=== PATIENT | male | born 1945 | race Caucasian/White ===

== ENCOUNTER 2019-02-15 12:55 | Emergency (ER) | payer OTHER ==
[~2019-02-15] VITALS: Ht 167.6 cm; Wt 104.3 kg
[~2019-02-15 12:55] MED LIST: ALBU90OI INH; ALLO300 PO; ASPI81CH PO; ATOR80 PO; Alphagan P5 ML BOTHEYES; CIME400 PO; GABA300 PO; GLIP10 PO; INS70/30I SC; INSU100I6; INSULANPEN SC; LISI5 PO; MIDO2.5 PO; MULVITMIND PO; NIAC500 PO; PIOG30 PO; PRED10 PO; RANI150 PO; SIMV80 PO; TAMS.4ER PO; TORSE20 PO; [UNRECOGNIZED DRUG - OTHER] BOTHEYES; [UNRECOGNIZED DRUG - OTHER] PO
[2019-02-15 13:41] LABS: BASOPHILS ABSOLUTE AUTO 0.04 K/mm3 (0.00-0.23); BASOPHILS PERCENT AUTO 1 % (0-2); EOSINOPHILS ABSOLUTE AUTO 0.25 K/mm3 (0.00-0.68); EOSINOPHILS PERCENT AUTO 3 % (0-6); Hematocrit 46.4 % (37.0-53.0); Hemoglobin 14.8 g/dL (13.5-17.5); IMMATURE GRAN PERCENT AUTO 1 % (0-1); LYMPHOCYTES ABSOLUTE AUTO 1.33 K/mm3 (0.84-5.20); LYMPHOCYTES PERCENT AUTO 15 % (21-46); MONOCYTES ABSOLUTE AUTO 0.92 K/mm3 (0.16-1.47); MONOCYTES PERCENT AUTO 11 % (4-13); Mean Corpuscular HGB 31.4 pg (26.0-34.0); Mean Corpuscular HGB Conc 31.9 g/dL (31.5-36.5); Mean Corpuscular Volume 99 fL (80-100); Mean Platelet Volume 10.7 fL (9.1-12.4); NEUTROPHILS ABSOLUTE AUTO 6.15 K/mm3 (1.96-9.15); NEUTROPHILS PERCENT AUTO 70 % (41-73); Platelet Count 198 K/mm3 (150-400); RDW Coefficient Variation 13.2 % (11.7-14.2); RDW Standard Deviation 48.8 fL (35.1-46.3); Red Blood Cell Count 4.71 M/mm3 (4.30-5.90); White Blood Cell Count 8.79 K/mm3 (4.00-11.30)
[2019-02-15 14:13] LABS: Anion Gap 8 mmol/L (6-16); Blood Urea Nitrogen 33 mg/dL (8-24); CO2, Blood 24 mmol/L (21-32); Calcium, Blood 8.5 mg/dL (8.5-10.1); Chloride, Blood 111 mmol/L (98-108); Glucose, Blood 56 mg/dL (70-99); Potassium, Blood 4.1 mmol/L (3.5-5.5); Sodium, Blood 143 mmol/L (136-145)
[2019-02-15 14:16] LABS: Alanine Aminotransfer (ALT/SGP 31 U/L (12-78); Alk Phos 74 U/L (50-136); Aspartate Aminotrans (AST/SGOT 20 U/L (12-37); Bilirubin, Total 0.3 mg/dL (0.1-1.0); Bun/Creatinine Ratio 17.6 (12.0-20.0); Creatinine, Blood 1.87 mg/dL (0.60-1.20); Globulin, Blood 2.9 g/dL (2.2-4.0); Glomerular Filtration Rate 38 (60-); Total Protein, Blood 5.9 g/dL (6.4-8.2); Troponin I <0.015 ng/mL (0.000-0.040)
== END 2019-02-15 15:29 | disposition home or self-care (01) ==
LOC: ER 12:55
PROVIDERS: Emergency Medicine
DX: S00.81XA Abrasion of other part of head, initial encounter (principal); I95.1 Orthostatic hypotension; E11.9 Type 2 diabetes mellitus without complications; M10.9 Gout, unspecified; E78.5 Hyperlipidemia, unspecified; Z87.891 Personal history of nicotine dependence; W18.30XA Fall on same level, unspecified, initial encounter
CPT/HCPCS: 80053; 82947; 83880; 84484; 85025; 93005; 93010; 99284-25

== ENCOUNTER 2019-11-04 13:28 | Emergency (ER) | payer OTHER ==
[~2019-11-04] VITALS: Ht 167.6 cm; Wt 104.3 kg
== END 2019-11-04 15:40 | disposition home or self-care (01) ==
LOC: ER 13:28
DX: S52.512A Displaced fracture of left radial styloid process, initial encounter for closed fracture (principal); E11.9 Type 2 diabetes mellitus without complications; M10.9 Gout, unspecified; E78.00 Pure hypercholesterolemia, unspecified; F17.220 Nicotine dependence, chewing tobacco, uncomplicated; W18.30XA Fall on same level, unspecified, initial encounter
CPT/HCPCS: 73110; 99284-25

== ENCOUNTER 2020-03-22 10:20 | Emergency (ER) | payer OTHER ==
[~2020-03-22] VITALS: Ht 167.6 cm; Wt 110.2 kg
== END 2020-03-22 12:05 | disposition home or self-care (01) ==
LOC: ER 10:20
DX: S43.401A Unspecified sprain of right shoulder joint, initial encounter (principal); S50.811A Abrasion of right forearm, initial encounter; E78.5 Hyperlipidemia, unspecified; E11.39 Type 2 diabetes mellitus with other diabetic ophthalmic complication; H42 Glaucoma in diseases classified elsewhere; Z79.4 Long term (current) use of insulin; Z88.5 Allergy status to narcotic agent; Z88.8 Allergy status to other drugs, medicaments and biological substances; Z79.82 Long term (current) use of aspirin; Z79.899 Other long term (current) drug therapy; Z87.891 Personal history of nicotine dependence; W18.30XA Fall on same level, unspecified, initial encounter
CPT/HCPCS: 73030; 99283-25

== ENCOUNTER 2022-03-04 13:18 | Emergency (ER) | payer OTHER ==
[~2022-03-04] VITALS: Ht 167.6 cm; Wt 104.3 kg
[2022-03-04 16:05] LABS: Albumin, Blood 2.7 g/dL (3.4-5.0); Bilirubin, Total 0.4 mg/dL (0.1-1.0); Calcium, Blood 8.8 mg/dL (8.5-10.1); Creatinine, Blood 1.1 mg/dL (0.60-1.20); Globulin, Blood 2.6 g/dL (2.2-4.0); Potassium, Blood 4.2 mmol/L (3.5-5.5); Total Protein, Blood 5.3 g/dL (6.4-8.2)
[2022-03-04 17:35] LABS: Calcium, Ionized (POC) 1.28 mmol/L (1.10-1.46); Chloride (POC) 108 mmol/L (98-108); Creatinine (POC) 1.2 mg/dL (0.8-1.3); Glucose (ISTAT POC) 95 mg/dL (70-99); Hemoglobin (POC) 16.3 g/dL (13.5-17.5); Potassium (POC) 4.1 mmol/L (3.5-5.5); Sodium (POC) 144 mmol/L (135-148); Total CO2 (POC) 27 mmol/L (21-32)
[2022-03-04 18:06] LABS: BASOPHILS ABSOLUTE AUTO 0.03 K/mm3 (0.00-0.23); BASOPHILS PERCENT AUTO 0 % (0-2); EOSINOPHILS ABSOLUTE AUTO 0.12 K/mm3 (0.00-0.68); EOSINOPHILS PERCENT AUTO 1 % (0-6); Hematocrit 45.8 % (37.0-53.0); Hemoglobin 14.9 g/dL (13.5-17.5); IMMATURE GRAN ABSOLUTE AUTO 0.05 K/mm3 (0.00-0.10); IMMATURE GRAN PERCENT AUTO 1 % (0-1); LYMPHOCYTES PERCENT AUTO 12 % (21-46); MONOCYTES ABSOLUTE AUTO 0.53 K/mm3 (0.16-1.47); MONOCYTES PERCENT AUTO 5 % (4-13); Mean Corpuscular HGB 31.2 pg (26.0-34.0); Mean Corpuscular HGB Conc 32.5 g/dL (31.5-36.5); Mean Corpuscular Volume 96 fL (80-100); NEUTROPHILS ABSOLUTE AUTO 7.85 K/mm3 (1.96-9.15); NEUTROPHILS PERCENT AUTO 80 % (41-73); Platelet Count 206 K/mm3 (150-400); RDW Coefficient Variation 13.3 % (11.7-14.2); RDW Standard Deviation 47.4 fL (35.1-46.3); Red Blood Cell Count 4.77 M/mm3 (4.30-5.90); White Blood Cell Count 9.78 K/mm3 (4.00-11.30)
== END 2022-03-04 18:00 | disposition home or self-care (01) ==
LOC: ER 13:18
PROVIDERS: Emergency Medicine
DX: R55 Syncope and collapse (principal); I95.9 Hypotension, unspecified; E11.9 Type 2 diabetes mellitus without complications; E78.5 Hyperlipidemia, unspecified; Z88.5 Allergy status to narcotic agent; Z88.8 Allergy status to other drugs, medicaments and biological substances; Z79.899 Other long term (current) drug therapy; Z79.82 Long term (current) use of aspirin; Z79.4 Long term (current) use of insulin; Z87.891 Personal history of nicotine dependence
CPT/HCPCS: 80047; 80053; 84484; 85014; 85025; 93005; 93010; 99284-25; J7030

== ENCOUNTER 2022-03-11 04:35 | Inpatient (IN) | payer OTHER ==
[~2022-03-11] VITALS: Ht 167.6 cm; Wt 94.9 kg
[~2022-03-11 04:35] MED LIST changes: -GABA300 PO; +GABA800 PO; -INSU100I6; +NOVOLOG FL100 UNIT/3 SC
[2022-03-11 05:23] LABS: BASOPHILS ABSOLUTE AUTO 0.05 K/mm3 (0.00-0.23); BASOPHILS PERCENT AUTO 0 % (0-2); EOSINOPHILS ABSOLUTE AUTO 0.12 K/mm3 (0.00-0.68); EOSINOPHILS PERCENT AUTO 1 % (0-6); Hematocrit 48.3 % (37.0-53.0); Hemoglobin 16.5 g/dL (13.5-17.5); IMMATURE GRAN ABSOLUTE AUTO 0.11 K/mm3 (0.00-0.10); IMMATURE GRAN PERCENT AUTO 1 % (0-1); LYMPHOCYTES ABSOLUTE AUTO 1.61 K/mm3 (0.84-5.20); LYMPHOCYTES PERCENT AUTO 11 % (21-46); MONOCYTES ABSOLUTE AUTO 0.55 K/mm3 (0.16-1.47); MONOCYTES PERCENT AUTO 4 % (4-13); Mean Corpuscular HGB 31.7 pg (26.0-34.0); Mean Corpuscular HGB Conc 34.2 g/dL (31.5-36.5); Mean Corpuscular Volume 93 fL (80-100); Mean Platelet Volume 11.3 fL (9.1-12.4); NEUTROPHILS ABSOLUTE AUTO 11.76 K/mm3 (1.96-9.15); NEUTROPHILS PERCENT AUTO 83 % (41-73); Platelet Count 218 K/mm3 (150-400); RDW Coefficient Variation 13.1 % (11.7-14.2); RDW Standard Deviation 44.4 fL (35.1-46.3); Red Blood Cell Count 5.21 M/mm3 (4.30-5.90)
[2022-03-11 06:01] LABS: CPK Creatine Kinase 77 U/L (39-308); Creatine Kinase MB 1.2 ng/mL (0.0-3.6); Ethanol (Alcohol), Blood, Med <3 mg/dL
[2022-03-11 06:02] LABS: Alanine Aminotransfer (ALT/SGP 32 U/L (12-78); Albumin, Blood 3.5 g/dL (3.4-5.0); Albumin/Globulin Ratio 1.2 (0.8-1.8); Alk Phos 96 U/L (50-136); Anion Gap 5 mmol/L (6-16); Aspartate Aminotrans (AST/SGOT 18 U/L (12-37); Bilirubin, Total 0.8 mg/dL (0.1-1.0); Blood Urea Nitrogen 24 mg/dL (8-24); Bun/Creatinine Ratio 19.2 (12.0-20.0); CO2, Blood 30 mmol/L (21-32); Chloride, Blood 109 mmol/L (98-108); Creatine Kinase MB Index 1.6 (0.0-4.0); Creatinine, Blood 1.25 mg/dL (0.60-1.20); Globulin, Blood 2.9 g/dL (2.2-4.0); Glomerular Filtration Rate 60 (60-); Glucose, Blood 166 mg/dL (70-99); Potassium, Blood 3.8 mmol/L (3.5-5.5); Sodium, Blood 144 mmol/L (136-145); Total Protein, Blood 6.4 g/dL (6.4-8.2)
[2022-03-11 07:43] LABS: Source, Urine Clean Catch
[2022-03-11 07:56] LABS: Appearance, Urine Clear (Clear); Bilirubin, Urine Neg (Neg); Blood, Urine 3+ (Neg); Color, Urine Yellow (P-Yellow); Glucose Qualitative, Urine 2+ (Neg); Ketones, Urine 3+ (Neg); Leukocyte Esterase, Urine Neg (Neg); Nitrite, Urine Neg (Neg); Protein, Urine 4+ (Neg); Urobilinogen, Urine NORM (Normal)
[2022-03-11 08:25] LABS: U Amphetamine Screen Not Detected; U Barbituate Screen Not Detected; U Benzodiazapine Screen Not Detected; U Buprenorphine Screen Not Detected; U Cannabinoids Screen Not Detected; U Cocaine Screen Not Detected; U Methadone Screen Not Detected; U Methamphetamine Screen Not Detected; U Opiates Screen Not Detected; U Oxycodone Screen Not Detected; U Phencyclidine Screen Not Detected; U Propoxyphene Screen Not Detected
[2022-03-11 08:37] LABS: Amorphous Light (0-Heavy); Bacteria Few /hpf; Granular Casts 0-2 /lpf (0); Renal Epithelial Rare /hpf (0-Rare); Squamous Epithelial Cells Rare /hpf (Few)
[2022-03-11 12:55] LABS: PCO2 Arterial 51.9 mmHg (35-45); PO2 Arterial 51 mmHg (80-100); pH Blood Arterial 7.36 (7.35-7.45)
[2022-03-11 16:35] LABS: PCO2 Arterial 42.5 mmHg (35-45); PO2 Arterial 68.9 mmHg (80-100); pH Blood Arterial 7.39 (7.35-7.45)
--- NOTE | 2022-03-11 18:29 | NUR ---
SHIFT SUMMARY PATIENT DENIES PAIN AND SHORTNESS OF BREATH. PATIENT IS A SBA WITH A FWW. PATIENT WORKED WITH PT AND OT T0DAY. PATIENT TITRATED TO ROOM AIR, SATURATING AT 95%. IBARRA PULLED THIS MORNING, PATIENT URINATING WELL. BLADDER SCAN POST VOID WAS 130MLS. PATIENT MEDICATED X1 FOR NAUSEA, PATIENT DID VOMIT THIS AFTERNOON. PATIENT VISITED THIS MORNING. BEDSIDE SWALLOW EVAL DONE BY THIS RN, PATIENT SWALLOWED ALL TEXTURES WITHOUT SIGNS OF ASPIRATION, I.E., NO COUGHING OR THROAT CLEARING. PATIENT DOES NOT HAVE DENTURES SO SOFT DIET ORDERED, PER MD. PATIENT IS EATING AND DRINKING WELL. PATIENT IS PLEASANT AND COOPERATIVE WITH CARE.
--- NOTE | 2022-03-11 18:34 | NUR ---
SHIFT SUMMARY PATIENT ADMITTED FROM ER AT 1045. PATIENT SETTLED INTO ROOM. PATIENT ORIENTED TO CALL LIGHT AND TV CONTROL. PATIENT DENIES PAIN AND SHORTNESS OF BREATH. PATIENT MEDICATED X1 FOR NAUSEA, PATIENT HAD MULTIPLE EVENTS OF VOMITTING. PATIENT IS A&O TO SELF. PATIENT CAN SOMETIMES STATE HIS BIRTHDAY. PATIENT IS SATURATING AT 94% ON ROOM AIR. MED REC NOT COMPLETE DUE TO PATIENT BEING ALTERED, NOT KNOWING MEDICATIONS, AND PHARMACY CLOSED. WAS ABLE TO COMPLETE ADMISSION AFTER CALLING . TELE IS RUNNING AFIB AT 89. PATIENT UNABLE TO FOLLOW DIRECTIONS, BUT REDIRECTABLE AFTER SOME TIME. PATIENT SLOW TO RESPOND. PATIENT NPO PENDING SPEECH EVAL. PATIENT IS VERY PLEASANT AND COOPERATIVE WITH CARE.
[2022-03-12] MEDS ORDERED: BETIMOL5 ML BOTHEYES (03:42)
[2022-03-12] MEDS ORDERED: LATANOPROST2.5 M3 BOTHEYES (03:49)
--- NOTE | 2022-03-12 04:44 | NUR ---
MACHINE LOAD CLERK SUMMARY PT A/OX1-2; PT VERY PLEASANT BUT CONFUSED. MULTIPLE ATTEMPTS T/GET OUT OF BED IN THE FIRST FEW HOURS OF THE SHIFT. PT COULD TELL ME HIS NAME, , AND THAT HE WAS IN A HOSPITAL IN [place]; PT REDIRECTABLE. NO EPISODES OF NAUSEA/VOMITING. RT HELPED W/CPAP; PT WORE CPAP T/O THE NIGHT. PT ON CONT PULSE OX. PT TOOK OF PULSE OX MONITOR AND PULLED IV IN LEFT AC APROX 0300. ON TELE; SINUS XUAN AT 57 BPM. PT REMAINS NPO T/O SHIFT. PT DENIES NEED WHEN ASKED. CALL LIGHT IN REACH; PT NOT ABLE TO MAKE NEEDS KNOWN. BED LOCKED/LOW; ALARM SET. FREQUENT ROUNDING/CONT TO MONITOR.
[2022-03-12 05:59] LABS: BASOPHILS ABSOLUTE AUTO 0.07 K/mm3 (0.00-0.23); BASOPHILS PERCENT AUTO 1 % (0-2); EOSINOPHILS ABSOLUTE AUTO 0.11 K/mm3 (0.00-0.68); EOSINOPHILS PERCENT AUTO 1 % (0-6); Hematocrit 44.4 % (37.0-53.0); Hemoglobin 14.9 g/dL (13.5-17.5); IMMATURE GRAN ABSOLUTE AUTO 0.09 K/mm3 (0.00-0.10); IMMATURE GRAN PERCENT AUTO 1 % (0-1); LYMPHOCYTES ABSOLUTE AUTO 1.12 K/mm3 (0.84-5.20); LYMPHOCYTES PERCENT AUTO 9 % (21-46); MONOCYTES ABSOLUTE AUTO 1.34 K/mm3 (0.16-1.47); MONOCYTES PERCENT AUTO 10 % (4-13); Mean Corpuscular HGB 31.4 pg (26.0-34.0); Mean Corpuscular HGB Conc 33.6 g/dL (31.5-36.5); Mean Corpuscular Volume 94 fL (80-100); Mean Platelet Volume 11.5 fL (9.1-12.4); NEUTROPHILS ABSOLUTE AUTO 10.18 K/mm3 (1.96-9.15); NEUTROPHILS PERCENT AUTO 79 % (41-73); Platelet Count 194 K/mm3 (150-400); RDW Coefficient Variation 13.2 % (11.7-14.2); RDW Standard Deviation 45.4 fL (35.1-46.3); Red Blood Cell Count 4.75 M/mm3 (4.30-5.90); White Blood Cell Count 12.91 K/mm3 (4.00-11.30)
[2022-03-12 06:43] LABS: Albumin, Blood 2.8 g/dL (3.4-5.0); Albumin/Globulin Ratio 1.1 (0.8-1.8); Bilirubin, Total 0.9 mg/dL (0.1-1.0); Calcium, Blood 8.7 mg/dL (8.5-10.1); Creatinine, Blood 1.67 mg/dL (0.60-1.20); Globulin, Blood 2.6 g/dL (2.2-4.0); Potassium, Blood 3.9 mmol/L (3.5-5.5); Total Protein, Blood 5.4 g/dL (6.4-8.2)
[2022-03-12 15:37] LABS: C-REACTIVE PROTEIN, EXT RANGE <0.290 mg/dL (0.000-0.300)
[2022-03-12 15:43] LABS: Free Thyroxine 1.11 ng/dL (0.70-1.60)
[2022-03-12 15:46] LABS: Triiodothyronine, Free 1.72 pg/mL (2.18-3.98)
--- NOTE | 2022-03-12 16:56 | NUR ---
SHIFT SUMMARY PATIENT DENIES PAIN, NAUSEA, AND SHORTNESS OF BREATH. PATIENT IS A SBA WITH A FWW. PATIENT WORKED WITH PT AND OT TODAY. RECOMMENDING HOME WITH HOME HEALTH. OT DID A MINI MENTAL EXAM, PATIENT SCORED 13/30, SEE NOTES FOR FURTHER DETAILS. MRI FORM COMPELTED WITH AND PATIENT TAKEN TO MRI THIS AFTERNOON, PENDING RESULTS. SPEECH EVAL THIS MORNING, RECOMMENDING SOFT DIET, MEDICATIONS WHOLE IN APPLESAUCE. FAMILY VISITED TODAY. PATIENT IS EATING AND DRINKING WELL. PATIENT MENTATION BETTER THAN YESTERDAY, A&O X2. PATIENT IS VERY PLEASANT AND COOPERATIVE WITH CARE.
--- NOTE | 2022-03-13 03:56 | NUR ---
SHIFT SUMMARY: PT CONTINUES TO BE CONFUSED. ABLE TO TELL NAME//YEAR, DOES NOT KNOW WHERE HE IS OR WHY HE IS HERE, UNSURE OF MONTH. PT COMPLAINING OF NAUSEA X 1 WITH GOOD RESULTS FROM MEDICATION, NO EMESIS. PT ABLE TO VOID AFTER SOME DIFFICULTY WHICH IS NORMAL FOR HIM PER DAY SHIFT. PT SBA WHEN UP WITH WALKER. MEDICATED FOR HTN X 2, SEE EMAR. WEARING CPAP INTERMITTENTLY DUE TO NON COMPLAINCE WITH MASK. WILL CONTINUE TO ENCOURAGE. CALL LIGHT IN REACH. BED ALARM ON.
[2022-03-13 05:52] LABS: BASOPHILS ABSOLUTE AUTO 0.08 K/mm3 (0.00-0.23); BASOPHILS PERCENT AUTO 1 % (0-2); EOSINOPHILS ABSOLUTE AUTO 0.14 K/mm3 (0.00-0.68); EOSINOPHILS PERCENT AUTO 1 % (0-6); Hematocrit 48.3 % (37.0-53.0); IMMATURE GRAN ABSOLUTE AUTO 0.08 K/mm3 (0.00-0.10); IMMATURE GRAN PERCENT AUTO 1 % (0-1); LYMPHOCYTES ABSOLUTE AUTO 1.07 K/mm3 (0.84-5.20); LYMPHOCYTES PERCENT AUTO 9 % (21-46); MONOCYTES ABSOLUTE AUTO 0.83 K/mm3 (0.16-1.47); MONOCYTES PERCENT AUTO 7 % (4-13); Mean Corpuscular HGB 31.3 pg (26.0-34.0); Mean Corpuscular HGB Conc 33.1 g/dL (31.5-36.5); Mean Corpuscular Volume 95 fL (80-100); Mean Platelet Volume 11.3 fL (9.1-12.4); NEUTROPHILS ABSOLUTE AUTO 9.37 K/mm3 (1.96-9.15); NEUTROPHILS PERCENT AUTO 81 % (41-73); Platelet Count 210 K/mm3 (150-400); RDW Coefficient Variation 13.3 % (11.7-14.2); RDW Standard Deviation 46.4 fL (35.1-46.3); Red Blood Cell Count 5.11 M/mm3 (4.30-5.90); White Blood Cell Count 11.57 K/mm3 (4.00-11.30)
[2022-03-13 06:17] LABS: Albumin, Blood 3.3 g/dL (3.4-5.0); Albumin/Globulin Ratio 1.1 (0.8-1.8); Bilirubin, Total 0.6 mg/dL (0.1-1.0); Calcium, Blood 9.1 mg/dL (8.5-10.1); Creatinine, Blood 1.87 mg/dL (0.60-1.20); Magnesium, Blood 1.9 mg/dL (1.6-2.4); Phosphorus, Blood 3.1 mg/dL (2.5-4.9); Potassium, Blood 3.6 mmol/L (3.5-5.5); Total Protein, Blood 6.3 g/dL (6.4-8.2)
--- NOTE | 2022-03-13 16:38 | NUR ---
SHIFT SUMMARY PT AWAKE DURING SHIFT REPORT, SITTING UP TO CHAIR AT . PER SHIFT REPORT, PT DID NOT SLEEP MUCH LAST NIGHT. PT DECLINED TO EAT BREAKFAST, REPORTED THAT HE WASN'T VERY HUNGRY. PT DID DRINK SOME COFFEE. PT LATER C/O OF FEELING SICK AND STARTED VOMITING. ZOFRAN GIVEN PER EMAR, WHICH SEEMED TO HELP FOR A WHILE. PT ASSISTED BACK TO BED FOR RENAL US. PT THEN UP TO BTHRM TO VOID ALSO HAVING DIARRHEA. URINE LAB OBTAINED AND SENT. PT CONTINUED TO HAVE LOOSE STOOLS; STOOL SAMPLE OBTAINED AND SENT. PT UP TO CHAIR THRU OUT THE DAY AND DOWN TO IMAGING A COUPLE OF TIMES. THERAPY IN TO WORK WITH PT, BUT HE HAD TO GO TO THE BTHRM AGAIN AND REMAINED IN BTHRM FOR EXTENDED TIME. PT LATER BACK TO CHAIR AND STARTED VOMITING AGAIN WHEN FAMILY CAME IN FOR VISIT. ZOFRAN GIVEN PER EMAR. DR VIERA NOTIFIED; NEW ORDERS RECEIVED. PT THEN OUT OF CHAIR SETTING OFF ALARM D/T BOWEL INCONTINENCE. PT ASSISTED TO BTHRM TO FINISH AND GET CLEANED UP. PT RESTING QUIETLY IN BED AT THIS TIME. BED ALARM ON FOR SAFETY. CALL LT IN REACH.
[2022-03-13 17:20] LABS: Adenovirus F 40/41 Not Detected (NOT DETECT); Astrovirus Not Detected (NOT DETECT); Campylobacter Sp Not Detected (NOT DETECT); Cryptosporidium Not Detected (NOT DETECT); Cyclospora Cayetanensis Not Detected (NOT DETECT); E. Coli O157 Not Detected (NOT DETECT); Entamoeba Histolytica Not Detected (NOT DETECT); Enteroaggregative E. coli-EAEC Not Detected (NOT DETECT); Enteropathogenic E. coli-EPEC Detected (NOT DETECT); Enterotoxigenic E. coli-ETEC Not Detected (NOT DETECT); Giardia Lamblia Not Detected (NOT DETECT); Norovirus GI/GII Not Detected (NOT DETECT); Plesiomonas Shigelloides Not Detected (NOT DETECT); Rotavirus A Not Detected (NOT DETECT); Salmonella Sp Not Detected (NOT DETECT); Sapovirus Not Detected (NOT DETECT); Shiga Toxin-prod E. coli-STEC Not Detected (NOT DETECT); Shigella/Enteroin E. coli-EIEC Not Detected (NOT DETECT); Vibrio Cholerae Not Detected (NOT DETECT); Vibrio Sp Not Detected (NOT DETECT); Yersinia Enterocolitica Not Detected (NOT DETECT)
--- NOTE | 2022-03-14 05:11 | NUR ---
Assumed pt care around 2100. Pt is A/Ox2. Bed alarms and remote monitoring on as pt is not call light appropriate. Overnight pt had no loose stools. He did c/o some nausea- PRN phenegran given. IVF infusing. This am pt recieved IV hydralazine PRN for bp >180 systolically. He is able to ambulate to the bathroom 1 assist and walker. He slept well between cares.
[2022-03-14 05:20] LABS: BASOPHILS ABSOLUTE AUTO 0.04 K/mm3 (0.00-0.23); BASOPHILS PERCENT AUTO 0 % (0-2); EOSINOPHILS ABSOLUTE AUTO 0.04 K/mm3 (0.00-0.68); EOSINOPHILS PERCENT AUTO 0 % (0-6); Hematocrit 43.7 % (37.0-53.0); Hemoglobin 14.6 g/dL (13.5-17.5); IMMATURE GRAN PERCENT AUTO 1 % (0-1); LYMPHOCYTES PERCENT AUTO 9 % (21-46); MONOCYTES ABSOLUTE AUTO 1.16 K/mm3 (0.16-1.47); MONOCYTES PERCENT AUTO 9 % (4-13); Mean Corpuscular HGB 31.3 pg (26.0-34.0); Mean Corpuscular HGB Conc 33.4 g/dL (31.5-36.5); Mean Corpuscular Volume 94 fL (80-100); Mean Platelet Volume 11.4 fL (9.1-12.4); NEUTROPHILS ABSOLUTE AUTO 10.47 K/mm3 (1.96-9.15); NEUTROPHILS PERCENT AUTO 81 % (41-73); Platelet Count 199 K/mm3 (150-400); RDW Coefficient Variation 13.3 % (11.7-14.2); Red Blood Cell Count 4.66 M/mm3 (4.30-5.90); White Blood Cell Count 13.01 K/mm3 (4.00-11.30)
[2022-03-14 05:46] LABS: Albumin, Blood 3.1 g/dL (3.4-5.0); Anion Gap 5 mmol/L (6-16); Blood Urea Nitrogen 31 mg/dL (8-24); Bun/Creatinine Ratio 15.9 (12.0-20.0); CO2, Blood 28 mmol/L (21-32); Calcium, Blood 8.8 mg/dL (8.5-10.1); Chloride, Blood 112 mmol/L (98-108); Creatinine, Blood 1.95 mg/dL (0.60-1.20); Glomerular Filtration Rate 35 (60-); Glucose, Blood 269 mg/dL (70-99); Phosphorus, Blood 2.3 mg/dL (2.5-4.9); Potassium, Blood 3.8 mmol/L (3.5-5.5); Sodium, Blood 145 mmol/L (136-145)
--- NOTE | 2022-03-14 16:53 | NUR ---
SHIFT SUMMARY PATIENT IS ALERT AND ORIENTED 2-3. PATIENT HAS BEEN PLEASENT AND COOPERATIVE THIS SHIFT. PATIENT HAS BEEN IN CHAIR MOST OF SHIFT. REDIRECTABLE WHEN PATIENT GETS UP. CHAIR ALARM ON. PATIENT HAS NO COMPLAINTS OF PAIN, NAUSEA, SOB OR VOMITTING THIS SHIFT. NO ACUTE EVENTS THIS SHIFT. VITAL SIGNS REVIEWED. BED IN LOCKED AND LOWEST POSITION. CALL LIGHT IN PLACE. WILL MONITOR UNTIL SHIFT CHANGE.
--- NOTE | 2022-03-15 04:21 | NUR ---
SHIFT SUMMARY: Pt A/Ox2. He is forgetful to use call light so bed/chair alarms utilized and remote corrosion control technician. He did get restless overnight stating he was bored and wanted to go. Cooler Deliverer oriented pt on why he was in the hospital and the importance. Pt was redirectable. He denies nausea, SOB, dizziness, and pain. No diarrhea this shift. IVF continue to infuse. Abx given per JUN.
[2022-03-15 06:14] LABS: Hematocrit 44.9 % (37.0-53.0)
[2022-03-15 06:22] LABS: Anion Gap 7 mmol/L (6-16); Blood Urea Nitrogen 43 mg/dL (8-24); Bun/Creatinine Ratio 21.1 (12.0-20.0); CO2, Blood 25 mmol/L (21-32); Calcium, Blood 8.9 mg/dL (8.5-10.1); Chloride, Blood 114 mmol/L (98-108); Creatinine, Blood 2.04 mg/dL (0.60-1.20); Glomerular Filtration Rate 33 (60-); Glucose, Blood 254 mg/dL (70-99); Magnesium, Blood 2.2 mg/dL (1.6-2.4); Phosphorus, Blood 2.2 mg/dL (2.5-4.9); Potassium, Blood 4.2 mmol/L (3.5-5.5); Sodium, Blood 146 mmol/L (136-145)
[2022-03-15 14:08] LABS: A/G RATIO 1.6 (0.7-1.7); ALBUMIN 3.2 g/dL (2.9-4.4); ALPHA-1-GLOBULIN 0.2 g/dL (0.0-0.4); ALPHA-2-GLOBULIN 0.4 g/dL (0.4-1.0); BETA GLOBULIN 0.7 g/dL (0.7-1.3); GAMMA GLOBULIN 0.6 g/dL (0.4-1.8); M-SPIKE Not Observed g/dL (Not Observed); PROTEIN, TOTAL, SERUM 5.2 g/dL (6.0-8.5)
--- NOTE | 2022-03-15 18:58 | NUR ---
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 PT IS SLOW TO RESPOND. HAS FACIAL DROOP FROM HX M. GRAVIS. 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 PT FORGETFUL TO LIMITS AND FREQ SETS OFF BED ALARM. SBA TO BATHROOM TO VOID AT TIOLET. 1 SBA WALKER. SITS UP IN CHAIR FOR MEALS. HAS LITTLE APPETITE. TROUBLE WITH IV'S ALL DAY. INITIAL IV WAS LEAKING THIS AM. MULT ATTEMPTS BY JOSE ENRIQUE RN'S FINDING VEINS VERY ELASTIC AND HARD TO PENETRATE WELL MANY VALVES. ENDED UP PLACING A POWERGILDE. IV NS AT 50ML/HR. ONE FORMED BROWN STOOL TODAY. IN TO VISIT THIS AM. BED/CHAIR ALARM ALWAYS IN USE, PT ON ADAME FOR SAFETY. WILL REPORT TO NOC SHIFT.
--- NOTE | 2022-03-16 05:10 | NUR ---
SUMMARY: PT ORIENTED TO SELF AND FAMILY BUT CONFUSED TO EVENT, PLACE AND DATE. HE'S VERY IMPULSIVE AND MAKES FREQ ATTEMPTS OOB BY SELF DESPITED REPEATED REMINDERS AND ORIENTATION. PT IS UP W/1PA AND FWW TO RECLINER AND BATHROOM. HE'S BEEN CONTINENT T/O NOCTE BUT HAS PULLUPS ON FOR POSS URGE INCONTINENCE. BED/CHAIR ALARMS ON AND CAMERA MONITORING IN PLACE D/T FALL RISK AND LINES. IVF INFUSING TO TACHO PG AND CONT BIOX INTACT BUT PT REFUSED CPAP TONIGHT. NO ACUTE CHANGES, VSS/AFEBRILE. WCTM AND REPORT TO DAY RN.
[2022-03-16 07:12] LABS: Hematocrit 41.6 % (37.0-53.0); Hemoglobin 14.1 g/dL (13.5-17.5)
[2022-03-16 07:27] LABS: Albumin, Blood 2.8 g/dL (3.4-5.0); Anion Gap 4 mmol/L (6-16); Blood Urea Nitrogen 37 mg/dL (8-24); CO2, Blood 28 mmol/L (21-32); Calcium, Blood 8.6 mg/dL (8.5-10.1); Chloride, Blood 113 mmol/L (98-108); Creatinine, Blood 1.76 mg/dL (0.60-1.20); Glomerular Filtration Rate 40 (60-); Glucose, Blood 216 mg/dL (70-99); Magnesium, Blood 2.1 mg/dL (1.6-2.4); Phosphorus, Blood 2.2 mg/dL (2.5-4.9); Potassium, Blood 4.4 mmol/L (3.5-5.5); Sodium, Blood 145 mmol/L (136-145)
--- NOTE | 2022-03-16 20:03 | NUR ---
SHIFT SUMMARY PT A&OX2 AND COOPERATIVE OF CARE IN THE AM. PT UP AT TIMES BUT ABLE TO BE REDIRECTED BACK TO CHAIR FOR MOST OF THE DAY. PT ATE VERY LITTL STATING THAT HE WASN'T FEELING HUNGRY AND THAT THE FOOD DIDN'T TASTE THAT GOOD. WHEN ATTEMPTING TO HANG SODIUM PHOSPHATE IN AFTERNOON PT VERBALIZED THAT HE DID NOT WANT THE MEDICATION. ATTEMPTED TO EDUCATE PT ON THE NEED AND HOW THE MEDICATION WORKED. PT STILL REFUSED STATING IT WAS NOT GOOD FOR HIS FOR DIABETES. AGAIN ATTMEPTED TO EDUCATE ABOUT THE PURPOSE OF THE MEDICATION. THIS NURSE ASKED FOR ASSISTANCE FROM A SECOND NURSE. PT BECOME VERY AGITATED AND BEGAN WALKING AROUND ROOM. PT COULD NOT BE REORIENTED BACK TO CHAIR OR BED. PT EVENTUALLY WALKED INTO CASTRO AND WAS PUSHING ON DOOR TO GET OUT. STAFF TALKED WITH PT FOR SOME TIME BUT HE COULD NOT BE HELPED BACK TO ROOM. SECURITY CALLED. NOTIFIED AND ORDERS GIVEN. PT WAS HELPED TO WHEELCHAIR AND GIVEN IM ZYPREXA BEFORE GOING BACK TO ROOM. PT STILL REFUSED TO GET BACK TO BED. SECURITY SAT WITH PT FOR OVER AN HOUR AND BECOME MORE COMBATIVE AND AGGRESIVE. AGAIN NOTIFIED AND NEW ORDERS GIVEN. PT MEDICATED PER EMAR AND RESTRANTS PLACED. REPORT GIVEN TO MIDDLEWARE SOLUTIONS ARCHITECT NURSE.
--- NOTE | 2022-03-16 20:35 | NUR ---
NEW ORDER FOR WRIST RESTRAINTS + VEST AND X4 RAILS (): PT NOW ORIENTED TO SELF ONLY. HE'S CURRENTLY VERY CONFUSED, HALLUCINATING, UNABLE TO ANSWER Q'S APPROPRIATELY AND HAS NONSENSICAL SPEECH. HE'D PREVIOUSLY BEEN COMBATIVE AND UNABLE TO FOLLOW INSTRUCTION W/SECURIT INVOLVED AND PRN ZYPREXA AND ATIVAN WAS GIVEN W/STEPHANIE VEST APPLIED AND X4 RAILS RAISED. PT NOW REQ'S WRIST RESTRAINTS D/T INCREASED AMS, IRRITABILITY, PULLING AT LINES AND RESTRAINTS W/REPEATED ATTEMPTS OOB BY SELF. HE'S AN EVEN GREATER FALL RISK D/T SEDATING MEDS. HE CANNOT CURRENTLY COMPREHEND LIMITATIONS, FALL RISK OR RATIONALE FOR RESTRAINTS OR BEHAVIOR RELATED TO THEM. WHEN SAFE TO AMBULATE, HE REMAINS IMPULSIVE, DIFFICULT TO DIRECT AND UNSTEADY ON FEET. WCTM AND ASSESS FOR ABILITY TO DC THEM.
--- NOTE | 2022-03-17 05:34 | NUR ---
SUMMARY: PT REMAINS ORIENTED TO SELF ONLY AND REMAINS IN STEPHANIE VEST, BILAT WRIST RESTRAINTS AND X4 RAILS. SEE PREVIOUS NOTES DETAILS ON MENTATION AND BEHAVIOR PRECEEDING RESTRAINT APPLICATION. HE'S CALMED SLIGHTLY NIGHT PROGRESSED BUT CONT'S TO BE RESTLESS, TENSE AND FIGITY IN BED. HE'S ABLE TO INTERACT A BIT MORE COHERENTLY THIS MORNING BUT CONT'S TO BE VERY CONFUSED, HALLUCINATING, TALKING TO SELF IN ROOM, AND IS UNAWARE OF LIMITATIONS, FALL RISK AND SURROUNDINGS. PT HAS APPEARED TENSE AND TREMULOUS AND FREQ REFERANCED SENSATION OF FALLING, JOLTING AWAKE WHILE LYING IN BED. REORIENTATION PROVIDED PRN AND ALARMS W/CAMERA MONITORING IN PROGRESS. TURN SCHEDULE MAINTAINED AND URINAL ASSIST PROVIDED SINCE COMMENCING RESTRAINTS. IVF'S INFUSING AND PO LIQ'S OFFERED REGULARLY T/O NOCTE. NO ACUTE CHANGES AND VSS/AFEBRILE BUT BP REMAINS ELEVATED. HE'S BEEN ASYMPTOMATIC OF CARDIAC DISTRESS BUT WAS ANXIOUSLY AWAKE MUCH OF NOCTE. PLAN TO DISCUSS POSS NEED FOR PRN BP MEDS W/DAY STAFF AND WCTM/REPORT TO DAY RN.
--- NOTE | 2022-03-17 05:56 | NUR ---
HERE TO SEE PT AND HE INSTRUCTED TO FINISH CURRENT IVF THEN START CLINIMIX AT 50 ML/HR AND HAVE DIETARY CX D/T AMS AND POOR PO INTAKE.
[2022-03-17 14:09] LABS: Hematocrit 46.4 % (37.0-53.0); Hemoglobin 15.8 g/dL (13.5-17.5)
[2022-03-17 14:17] LABS: Anion Gap 5 mmol/L (6-16); Blood Urea Nitrogen 29 mg/dL (8-24); Bun/Creatinine Ratio 19.7 (12.0-20.0); CO2, Blood 26 mmol/L (21-32); Chloride, Blood 115 mmol/L (98-108); Creatinine, Blood 1.47 mg/dL (0.60-1.20); Glomerular Filtration Rate 49 (60-); Glucose, Blood 176 mg/dL (70-99); Phosphorus, Blood 2.8 mg/dL (2.5-4.9); Potassium, Blood 3.9 mmol/L (3.5-5.5); Sodium, Blood 146 mmol/L (136-145)
--- NOTE | 2022-03-17 19:41 | NUR ---
SHIT SUMMARY PT ORRIENTED TO SELF. PT UNCOOPERATIVE WITH CARE IN THE AM AND ATTEMPTING TO KICK STAFF WHEN BEING CHANGED. PT IN WRIST AND STEPHANIE RESTRAINTS DURING START OF SHIFT. PT BECAME LESS COMBATIVE AND WRIST RESTRAINTS REMOVED AT NOON. PT STILL CONTINUES TO ATTEMPT TO GET OUT OF BED AND HAVE HAULICINATIONS. AT TIMES HE WAS MORE COOPERATIVE WITH CARE AND APPEARED TO RESPOND WELL WITH GENTLE COAXING. PT ATE VERY LITTLE TODAY. AND SON IN TO SEE PT IN AM BUT PT DID NOT RECONIGZE FAMILY. DR TRAN NOTIFIED THAT PT DID NOT TAKE ABX IN AFTERNOON. REPORT GIVEN TO GUEST EXPERIENCE CAPTAIN NURSE.
[2022-03-18 04:42] LABS: BASOPHILS ABSOLUTE AUTO 0.07 K/mm3 (0.00-0.23); BASOPHILS PERCENT AUTO 0 % (0-2); EOSINOPHILS ABSOLUTE AUTO 0.12 K/mm3 (0.00-0.68); EOSINOPHILS PERCENT AUTO 1 % (0-6); Hematocrit 45.7 % (37.0-53.0); Hemoglobin 15.3 g/dL (13.5-17.5); IMMATURE GRAN ABSOLUTE AUTO 0.12 K/mm3 (0.00-0.10); IMMATURE GRAN PERCENT AUTO 1 % (0-1); LYMPHOCYTES ABSOLUTE AUTO 0.72 K/mm3 (0.84-5.20); LYMPHOCYTES PERCENT AUTO 4 % (21-46); MONOCYTES ABSOLUTE AUTO 0.91 K/mm3 (0.16-1.47); MONOCYTES PERCENT AUTO 5 % (4-13); Mean Corpuscular HGB 31.8 pg (26.0-34.0); Mean Corpuscular HGB Conc 33.5 g/dL (31.5-36.5); Mean Corpuscular Volume 95 fL (80-100); Mean Platelet Volume 11.4 fL (9.1-12.4); NEUTROPHILS ABSOLUTE AUTO 16.07 K/mm3 (1.96-9.15); NEUTROPHILS PERCENT AUTO 89 % (41-73); Platelet Count 224 K/mm3 (150-400); RDW Coefficient Variation 13.5 % (11.7-14.2); Red Blood Cell Count 4.81 M/mm3 (4.30-5.90); White Blood Cell Count 18.01 K/mm3 (4.00-11.30)
--- NOTE | 2022-03-18 04:51 | NUR ---
SHIFT MOSTLY UNREMARKABLE. CLIENT IS COOPERATIVE WITH CARE AND FOLLOWS DIRECTIONS DESPITE PRESENT VISUAL AND AUDITORY HALLUCINATIONS. PATIENT WAS ABLE TO USE A URINAL ONCE THROUGHOUT SHIFT BUT IS OTHERWISE INCONTINENT. PATIENT SLEPT THROUGH MOST OF SHIFT AND WAS AOX1-2 WHEN AWAKE. CALL LIGHT LEFT WITHIN REACH.
[2022-03-18 04:59] LABS: Albumin, Blood 2.9 g/dL (3.4-5.0); Bilirubin, Total 0.6 mg/dL (0.1-1.0); Bun/Creatinine Ratio 20.3 (12.0-20.0); C-REACTIVE PROTEIN, EXT RANGE 4.25 mg/dL (0.000-0.300); Calcium, Blood 9.1 mg/dL (8.5-10.1); Creatinine, Blood 1.53 mg/dL (0.60-1.20); Globulin, Blood 2.9 g/dL (2.2-4.0); Phosphorus, Blood 3.5 mg/dL (2.5-4.9); Potassium, Blood 3.8 mmol/L (3.5-5.5); Total Protein, Blood 5.8 g/dL (6.4-8.2)
--- NOTE | 2022-03-18 17:36 | NUR ---
SHIFT SUMMARY PT AxOx2 WITH INTERMITTENT CONFUSION AND DROWSINESS. PT'S MENTATION SEEMED TO WAX AND WANE T/O THIS SHIFT. PT APPEARS TO HAVE VISUAL HALLUCINATIONS BUT IS REDIRECTABLE AND PLEASANT WITH CARE. SPOKE WITH , DAISY ON THE PHONE TODAY TO UPDATE HER ON PATIENT'S STATUS. PATIENT WORKED WITH PT AND OT THIS SHIFT AND WAS UP IN CHAIR THIS EVENING. PT DID REQUIRE 2-3L OF O2 VIA NC AFTER OXYGEN DESATTED BELOW 88%. PT RECOVERED TO >90% WITH CONTINUOUS O2. PT HAS POSITIONAL POWERGLIDE TO PRASHANT. CLINIMIX AND D5 INFUSING DURING THIS SHIFT. PT HAD NO LOOSE STOOL TODAY, BUT WAS INCONTINENT OF URINE. PT IS COOPERATIVE WITH CARE DURING CHANGES AND REPOSITIONING. PT DOES HAVE POOR APPETITE AND NEEDED A FEEDER FOR MEALS. PT IS CURRENTLY RESTING IN CHAIR, PREPARING FOR DINNER. CALL LIGHT IN REACH. DENIES ANY NEEDS AT THIS TIME.
--- NOTE | 2022-03-19 05:26 | NUR ---
PATIENT WAS AWAKE AND RESTLESS THROUGH MOST OF SHIFT. FREQUENTLY PULLING AT PULSE OX SENSOR ON FINGER AND NASAL CANNULA SUPPLYING SUPPLEMENTAL O2. O2 WAS ADJUSTED TO 6 LITERS/MINUTE DUE TO FREQUENT SATURATION DROPS DUE TO ACTIVITY. PATIENT NEEDED FREQUENT REDIRECTION TO RELAX AND BREATHE THROUGH NOSE, TO WHICH THE PATIENT WAS RESPONSIVE. AOX1. CALL LIGHT LEFT WITHIN REACH.
[2022-03-19 05:30] LABS: BASOPHILS ABSOLUTE AUTO 0.03 K/mm3 (0.00-0.23); BASOPHILS PERCENT AUTO 0 % (0-2); EOSINOPHILS ABSOLUTE AUTO 0.04 K/mm3 (0.00-0.68); EOSINOPHILS PERCENT AUTO 0 % (0-6); Hematocrit 41.2 % (37.0-53.0); Hemoglobin 13.2 g/dL (13.5-17.5); IMMATURE GRAN ABSOLUTE AUTO 0.11 K/mm3 (0.00-0.10); IMMATURE GRAN PERCENT AUTO 1 % (0-1); LYMPHOCYTES ABSOLUTE AUTO 0.29 K/mm3 (0.84-5.20); LYMPHOCYTES PERCENT AUTO 2 % (21-46); MONOCYTES PERCENT AUTO 4 % (4-13); Mean Corpuscular HGB 31.2 pg (26.0-34.0); Mean Corpuscular Volume 97 fL (80-100); Mean Platelet Volume 11.7 fL (9.1-12.4); NEUTROPHILS ABSOLUTE AUTO 12.66 K/mm3 (1.96-9.15); NEUTROPHILS PERCENT AUTO 93 % (41-73); Platelet Count 212 K/mm3 (150-400); RDW Coefficient Variation 13.8 % (11.7-14.2); RDW Standard Deviation 49.1 fL (35.1-46.3); Red Blood Cell Count 4.23 M/mm3 (4.30-5.90); White Blood Cell Count 13.63 K/mm3 (4.00-11.30)
[2022-03-19 06:10] LABS: Albumin, Blood 2.7 g/dL (3.4-5.0); Anion Gap 4 mmol/L (6-16); Blood Urea Nitrogen 46 mg/dL (8-24); Bun/Creatinine Ratio 25.6 (12.0-20.0); CO2, Blood 30 mmol/L (21-32); Calcium, Blood 8.8 mg/dL (8.5-10.1); Chloride, Blood 110 mmol/L (98-108); Glomerular Filtration Rate 39 (60-); Glucose, Blood 368 mg/dL (70-99); Magnesium, Blood 2.4 mg/dL (1.6-2.4); Phosphorus, Blood 5.3 mg/dL (2.5-4.9); Potassium, Blood 4.9 mmol/L (3.5-5.5); Sodium, Blood 144 mmol/L (136-145)
--- NOTE | 2022-03-19 06:45 | NUR ---
EVENT AT APPROXIMATELY 0635. AFTER CLAIMING TO NEED TO PEE, PATIENT BECAME BRIEFLY UNRESPONSIVE AND REACHED TOWARDS THE CEILING BEFOE SHAKING WITH EXCESSIVE FORCE IN ALL EXTREMITIES. EVENT LASTED APPROXIMATELY 15 SECONDS. O2 SATURATION DROPPED TO 82% DURING EVENT. ATTEMPTED TO REACH RAPID RESPONSE BUT VOCERA WAS NONFUNCTIONING. NOTIFIED CHARGE NURSE JANETT AT WHICH POINT ACTIVITY CEASED. PATIENT WAS NOT RESPONSIVE TO VERBAL STIMULI AFTER EVENT BUT VITALS WERE ALL WNL. STAYED WITH PATIENT FOR 5 MINUTES AND PATIENT RESPONDED TO VERBAL STIMULI BEFORE WE LEFT THE ROOM.
--- NOTE | 2022-03-19 17:50 | NUR ---
SHIFT SUMMARY PT ALERT TO SELF. PT IN CHAIR DURING MAJORITY OF SHIFT. WHILE IN ANOTHER ROOM PT ATTEMPTED TO STAND AND FELL ONTO BUTT. PT ASSISTED BACK TO BED, BED ALARM TURNED ON. ASSESSMENT COMPLETED, NO WOUNDS NOTED, NO CHANGE IN MENTATION. MD NOTIFIED, NO NEW ORDERS RECEIVED. PT STILL HAS CLINIMIX INFUSING AT 50ML/HR. PT REMAINS ON 6L NC, SPO2 > 92%. PT STILL WITH TREMORS (BASELINE). PT ON PRECAUTIONS FOR CDIFF, DECREASED BM'S, ON ORAL ABX. WILL CONTINUE TO MONITOR. CALL LIGHT WITHIN REACH.
--- NOTE | 2022-03-20 06:29 | NUR ---
SHIFT SUMMARY - NO ACUTE CHANGES THROUGHOUT THE NIGHT. SATS WNL ON 6L OXYGEN VIA NC - CONTINUOUS BIOX ON. PT HAS PULLED HIS O2 OFF APPX 3 TIMES TONIGHT, AND SATS DROP TO LOW TO MID 70'S, BUT PT RECOVERS WITHIN 30 SECONDS WITH O2 PLACED BACK ON AND PT DEEP BREATHS. PT HAS BEEN INCONTINENT THROUGHOUT THE NIGHT OF URINE/STOOL - ATTENDS IN PLACE. PT TOLERATED MEDS WITH APPLESAUCE WITHOUT COMPLICATIONS. PT IS ABLE TO FOLLOW INSTRUCTIONS GIVEN, AND RESPOND TO QUESTIONS ASKED. CLINIMIX INFUSING TO LEFT UA PG IV WITHOUT COMPLICATIONS. CALL LIGHT WITHIN REACH - ALTHOUGH PT HASN'T USED IT. BED IN LOW POSITION, BED ALARM IS ON FOR PT SAFETY.
[2022-03-20 10:01] LABS: BASOPHILS ABSOLUTE AUTO 0.06 K/mm3 (0.00-0.23); BASOPHILS PERCENT AUTO 1 % (0-2); EOSINOPHILS ABSOLUTE AUTO 0.49 K/mm3 (0.00-0.68); EOSINOPHILS PERCENT AUTO 4 % (0-6); Hematocrit 44.6 % (37.0-53.0); Hemoglobin 14.4 g/dL (13.5-17.5); IMMATURE GRAN ABSOLUTE AUTO 0.06 K/mm3 (0.00-0.10); IMMATURE GRAN PERCENT AUTO 1 % (0-1); LYMPHOCYTES PERCENT AUTO 6 % (21-46); MONOCYTES ABSOLUTE AUTO 0.98 K/mm3 (0.16-1.47); MONOCYTES PERCENT AUTO 8 % (4-13); Mean Corpuscular HGB 31.3 pg (26.0-34.0); Mean Corpuscular HGB Conc 32.3 g/dL (31.5-36.5); Mean Corpuscular Volume 97 fL (80-100); Mean Platelet Volume 11.9 fL (9.1-12.4); NEUTROPHILS ABSOLUTE AUTO 10.19 K/mm3 (1.96-9.15); NEUTROPHILS PERCENT AUTO 82 % (41-73); Platelet Count 227 K/mm3 (150-400); RDW Coefficient Variation 13.8 % (11.7-14.2); RDW Standard Deviation 49.1 fL (35.1-46.3); White Blood Cell Count 12.48 K/mm3 (4.00-11.30)
[2022-03-20 10:11] LABS: Albumin, Blood 2.9 g/dL (3.4-5.0); Bilirubin, Total 0.3 mg/dL (0.1-1.0); Bun/Creatinine Ratio 27.7 (12.0-20.0); C-REACTIVE PROTEIN, EXT RANGE 1.41 mg/dL (0.000-0.300); Calcium, Blood 8.7 mg/dL (8.5-10.1); Creatinine, Blood 1.88 mg/dL (0.60-1.20); Globulin, Blood 2.9 g/dL (2.2-4.0); Magnesium, Blood 2.4 mg/dL (1.6-2.4); Phosphorus, Blood 3.8 mg/dL (2.5-4.9); Potassium, Blood 4.3 mmol/L (3.5-5.5); Total Protein, Blood 5.8 g/dL (6.4-8.2)
--- NOTE | 2022-03-20 17:21 | NUR ---
SHIFT SUMMARY NO ACUTE CHANGES DURING SHIFT. PT ALERT TO SELF, PLACE, CONFUSED. PT REMAINS ON 6L NC, SPO2 REMAINS > 92%. CLINIMIX INFUSING @ 75 ML/HR. CONTINUED PO VANCO FOR CDIFF. PT COOPERATIVE IN CARE. WILL CONTINUE TO MONITOR. CALL LIGHT WITHIN REACH.
--- NOTE | 2022-03-21 01:36 | NUR ---
PATIENT VERY RESTLESS DURING NIGHT. TRIES TO GET OUT OF BED REPEATEDLY. BECOMES AGITATED APPROX 0100 ZYPREXA 1M 2.5MG IM ADMIN WITH LITTLE RESULTS. PATIENT PULLS OUT POWERGLIDE FROM LEFT ARM. NEW IV START TO RIGHT ARM BY SYEDA TRONCOSO. PATIENT IS ORIENTED TO SELF. HE IS RECEIVING CLINIMIX 75ML/HR WILL CONTINUE TO MONITOR.
--- NOTE | 2022-03-21 03:45 | NUR ---
SHIFT SUMMARY; PATIENT REPEATEDLY TRYING TO GET OUT OF BED ALL NOC. HE THROWS LEGS OVER RAILS AND BETWEEN RAILS. HE IS MEDICATED WITH ZYPREXA WITH MINIMAL SUCCESS. HE KEEPS REMOVING HIS O2 AND SATS ARE NOTED INTO THE 80'S. THIS RN SITS OUTSIDE OF THIS PATIENT ROOM TO BE AVAILABLE IMMEDIATELY WHEN HE TRIES TO GET UP AND WHEN HIS SAT MONITOR ALARMS. PATIENT REMAINS CONFUSED AND NO REDIRECTION IS WORKING TO KEEP HIM IN BED.
[2022-03-21 06:28] LABS: Hematocrit 44.1 % (37.0-53.0); Hemoglobin 14.6 g/dL (13.5-17.5)
[2022-03-21 06:53] LABS: Albumin, Blood 2.7 g/dL (3.4-5.0); Anion Gap 3 mmol/L (6-16); Blood Urea Nitrogen 48 mg/dL (8-24); Bun/Creatinine Ratio 27.9 (12.0-20.0); CO2, Blood 32 mmol/L (21-32); Calcium, Blood 9.5 mg/dL (8.5-10.1); Chloride, Blood 116 mmol/L (98-108); Creatinine, Blood 1.72 mg/dL (0.60-1.20); Glomerular Filtration Rate 41 (60-); Glucose, Blood 208 mg/dL (70-99); Magnesium, Blood 2.4 mg/dL (1.6-2.4); Phosphorus, Blood 3.7 mg/dL (2.5-4.9); Potassium, Blood 4.6 mmol/L (3.5-5.5); Sodium, Blood 151 mmol/L (136-145)
--- NOTE | 2022-03-21 12:41 | NUR ---
THIS NURSE NOTIFIED DR TABARES TO NOTIFY HIM OF SODIUM LEVEL ORDERED. SEE LABS. NEW ORDERS PLACED PER VERBAL ORDERS FROM DR. TABARES, SEE ORDERS
--- NOTE | 2022-03-21 17:40 | NUR ---
SHIFT SUMMARY PT AXO X1, PLEASANT AND COOPERATIVE WITH CARE THOUGH CONFUSED. NO BM THIS SHIFT, ABDOMEN DISTENDED, DR. GALVEZ NOTIFIED, NO NEW ORDERS. ELEVATED BP NOTED WITH AFTERNOON VITAL SIGNS, THIS NURSE TO MEDICATE PER EMAR. IV PATENT AND INFUSING PER EMAR. DR TABARES NOTIFIED PER ORDER OF STAT SODIUM RESULTS, NEW ORDERS INITIATED. BED IN LOW POSITION, CALL LIGHT WITHIN REACH. BED ALARM ON EEG THIS SHIFT, SEE RESULTS. UP WITH 1-2 ASSIST WITH FWW AND GB.
--- NOTE | 2022-03-22 03:44 | NUR ---
SHIFT SUMMARY; PATIENT AO X 3 AT FIRST PART OF NOC SHIFT. ABOUT MIDNIGHT PATIENT BECAME DISORIENTED AND REPEATEDLY TRYING TO GET OUT OF BED. HE WAS REORIENTED TO PLACE AND TIME REPEATEDLY WITH MINIMAL SUCCESS. PATIENT BECAME AGITATED AND ZYPREXA GIVEN 2.5MG WITH MINIMAL RESULTS. HE PULLS HIS O2 OFF AND TANGLES HIS SAT MONITOR LINE WITH HIS O2 LINE AND HIS IV LINE. COBAN PLACED OVER IV AND SAT MONITOR SITES TO MAKE THEM LESS AVAILABLE FOR HIM. HIS VITAL SIGNS ARE STABLE AND HIS CHEM BG ARE ELEVATED IN IVA 250+ RANGE COVERAGE WITH INSULIN.
--- NOTE | 2022-03-22 05:10 | NUR ---
SHIFT SUMMARY; PATIENT PLACED IN SOFT RESTRAINTS AT 0415 TODAY. HE HAS REPEATEDLY TRIED TO GET OUT OF BED SINCE 0200. HE WAS NOTED TO TRY AND WRAP HIS OXYGEN CANNULA AROUND HIS NECK CAUSING A CHOKING HAZARD. HE ALSO PULLS AT IV LINE AND SAT MONITOR CORD AND TRIES TO PLACE THAT AROUND HIS NECK ALSO. ATTEMPTS TO CONCEAL LINES AND TUBING IS UNSUCCESFUL. PATIENT CONTINUES TO TRY AND GET OUT OF BED AND PULLING AND LINES AND TUBING EVEN THOUGH THIS RN SITS IN ROOM WITH THIS PATIENT. DECISON TO PLACE HIM IN SOFT RESTRAINTS UPPER EXTREMITY AND ONE LOWER EXTREMITY TO KEEP HIM FROM THROWING LEG OVER RAILING TO TRY AND GET OUT OF BED. PATIENT IS NOTED TO BE MUMBLING AND CALLING TO "THAT OFFICER" TO TAKE HIM HOME AND TO CALL THE NEEDLE BAR MOLDER TO LET HIM GO. MONITORED CLOSELY UNTIL HAND OFF AT SHIFT CHANGE.
[2022-03-22 06:32] LABS: BASOPHILS ABSOLUTE AUTO 0.08 K/mm3 (0.00-0.23); BASOPHILS PERCENT AUTO 1 % (0-2); EOSINOPHILS ABSOLUTE AUTO 0.58 K/mm3 (0.00-0.68); EOSINOPHILS PERCENT AUTO 5 % (0-6); Hematocrit 44.4 % (37.0-53.0); Hemoglobin 14.6 g/dL (13.5-17.5); IMMATURE GRAN PERCENT AUTO 1 % (0-1); LYMPHOCYTES ABSOLUTE AUTO 0.88 K/mm3 (0.84-5.20); LYMPHOCYTES PERCENT AUTO 8 % (21-46); MONOCYTES ABSOLUTE AUTO 1.22 K/mm3 (0.16-1.47); MONOCYTES PERCENT AUTO 10 % (4-13); Mean Corpuscular HGB 31.5 pg (26.0-34.0); Mean Corpuscular HGB Conc 32.9 g/dL (31.5-36.5); Mean Corpuscular Volume 96 fL (80-100); Mean Platelet Volume 11.8 fL (9.1-12.4); NEUTROPHILS ABSOLUTE AUTO 8.92 K/mm3 (1.96-9.15); NEUTROPHILS PERCENT AUTO 76 % (41-73); Platelet Count 230 K/mm3 (150-400); RDW Coefficient Variation 13.4 % (11.7-14.2); RDW Standard Deviation 47.6 fL (35.1-46.3); Red Blood Cell Count 4.63 M/mm3 (4.30-5.90); White Blood Cell Count 11.78 K/mm3 (4.00-11.30)
[2022-03-22 06:52] LABS: Albumin, Blood 2.8 g/dL (3.4-5.0); Albumin/Globulin Ratio 0.9 (0.8-1.8); Bilirubin, Total 0.4 mg/dL (0.1-1.0); Bun/Creatinine Ratio 29.3 (12.0-20.0); Calcium, Blood 9.2 mg/dL (8.5-10.1); Creatinine, Blood 1.5 mg/dL (0.60-1.20); Potassium, Blood 4.5 mmol/L (3.5-5.5); Total Protein, Blood 5.8 g/dL (6.4-8.2)
[2022-03-23 03:37] LABS: BASOPHILS ABSOLUTE AUTO 0.07 K/mm3 (0.00-0.23); BASOPHILS PERCENT AUTO 1 % (0-2); EOSINOPHILS ABSOLUTE AUTO 0.58 K/mm3 (0.00-0.68); EOSINOPHILS PERCENT AUTO 5 % (0-6); Hemoglobin 13.8 g/dL (13.5-17.5); IMMATURE GRAN ABSOLUTE AUTO 0.07 K/mm3 (0.00-0.10); IMMATURE GRAN PERCENT AUTO 1 % (0-1); LYMPHOCYTES ABSOLUTE AUTO 0.92 K/mm3 (0.84-5.20); LYMPHOCYTES PERCENT AUTO 8 % (21-46); MONOCYTES ABSOLUTE AUTO 1.24 K/mm3 (0.16-1.47); MONOCYTES PERCENT AUTO 10 % (4-13); Mean Corpuscular HGB 31.4 pg (26.0-34.0); Mean Corpuscular HGB Conc 32.9 g/dL (31.5-36.5); Mean Corpuscular Volume 96 fL (80-100); Mean Platelet Volume 11.9 fL (9.1-12.4); NEUTROPHILS ABSOLUTE AUTO 9.23 K/mm3 (1.96-9.15); NEUTROPHILS PERCENT AUTO 76 % (41-73); Platelet Count 237 K/mm3 (150-400); RDW Coefficient Variation 13.5 % (11.7-14.2); RDW Standard Deviation 47.8 fL (35.1-46.3); Red Blood Cell Count 4.39 M/mm3 (4.30-5.90); White Blood Cell Count 12.11 K/mm3 (4.00-11.30)
[2022-03-23 04:47] LABS: Albumin, Blood 2.7 g/dL (3.4-5.0); Anion Gap 1 mmol/L (6-16); Blood Urea Nitrogen 48 mg/dL (8-24); Bun/Creatinine Ratio 30.4 (12.0-20.0); CO2, Blood 34 mmol/L (21-32); Calcium, Blood 9.5 mg/dL (8.5-10.1); Chloride, Blood 111 mmol/L (98-108); Creatinine, Blood 1.58 mg/dL (0.60-1.20); Glomerular Filtration Rate 45 (60-); Glucose, Blood 172 mg/dL (70-99); Magnesium, Blood 2.2 mg/dL (1.6-2.4); Phosphorus, Blood 3.6 mg/dL (2.5-4.9); Potassium, Blood 5.5 mmol/L (3.5-5.5); Sodium, Blood 146 mmol/L (136-145)
--- NOTE | 2022-03-23 06:26 | NUR ---
SHIFT SUMMARY PATIENT ALERT AND ORIENTED. HAD NO COMPLAINTS OF PAIN OR SHORTNESS OF BREATH. NO ACUTE ISSUES NOTED OVERNIGHT. CALL LIGHT WITHIN REACH. REPORT GIVEN TO ONCOMING RN.
--- NOTE | 2022-03-23 18:22 | NUR ---
SHIFT SUMMARY PT SLEEPING MOST OF THE DAY WHILE IN RECLINER. WAS AWAKE FOR MEALS AND THEN WHEN P.T. WAS WORKING WITH HIM. FWW USING FOR MOBILITY BUT NEEDED TO USE BSC AND HAD A LARGE MOSTLY FORMED BROWN BM. HAD BEEN ATTEMPTING TO CLIMB OOB PRIOR TO FALLING ASLEEP EARLIER TODAY. NO ATTEMPTS TO PULL AT LINES TODAY WITH WRIST RESTRAINTS OFF. IN TO VISIT FOR SHORT TIME THIS MORNING. DISCUSSED WITH HER CONCERNS AND HER WANTING A PHONE CALL FROM HIM.
--- NOTE | 2022-03-24 06:55 | NUR ---
MACHINERY ENGINEER SUMMARY: A&Ox2-4. INTERMITTENT CONFUSION, WORSE AT TIMES. CALLS SOMETIMES AND IS ABLE TO COMMUNICATE NEEDS MOSTLY EFFECTIVELY WITH SOME DIFFICULTY FINDING WORDS HE WANTS TO SAY. HAS BEEN WEARING STEPHANIE TONIGHT D/T PULLING AT IV, PULSE-OX AND ATTEMPTING TO GET OUT OF BED BUT HAS NOTICELY BEEN DOING THIS LESS THE NIGHT HAS PROGRESSED. 1PA W/FWW [id number] TO RECLINER THIS AM. DR TABARES SAW PT THIS MORNING AND STATED PT LOOKS MUCH MORE A&O TODAY AND IS OKAY TO ADVANCE DIET TOLERATED. WEARING BRIEF BUT CALLS TO USE URINAL D/T STEPHANIE RESTRAINTS. OVERALL PLEASANT AND COOPERATIVE WITH CARE ONCE REDIRECTED. WILL REPORT TO ONCOMING RN.
[2022-03-24 08:54] LABS: BASOPHILS ABSOLUTE AUTO 0.08 K/mm3 (0.00-0.23); BASOPHILS PERCENT AUTO 1 % (0-2); EOSINOPHILS ABSOLUTE AUTO 0.58 K/mm3 (0.00-0.68); EOSINOPHILS PERCENT AUTO 5 % (0-6); Hematocrit 44.4 % (37.0-53.0); Hemoglobin 14.4 g/dL (13.5-17.5); IMMATURE GRAN ABSOLUTE AUTO 0.15 K/mm3 (0.00-0.10); IMMATURE GRAN PERCENT AUTO 1 % (0-1); LYMPHOCYTES PERCENT AUTO 8 % (21-46); MONOCYTES ABSOLUTE AUTO 1.23 K/mm3 (0.16-1.47); MONOCYTES PERCENT AUTO 10 % (4-13); Mean Corpuscular HGB 31.4 pg (26.0-34.0); Mean Corpuscular HGB Conc 32.4 g/dL (31.5-36.5); Mean Corpuscular Volume 97 fL (80-100); Mean Platelet Volume 11.2 fL (9.1-12.4); NEUTROPHILS ABSOLUTE AUTO 9.22 K/mm3 (1.96-9.15); NEUTROPHILS PERCENT AUTO 75 % (41-73); Platelet Count 243 K/mm3 (150-400); RDW Coefficient Variation 13.4 % (11.7-14.2); RDW Standard Deviation 47.2 fL (35.1-46.3); Red Blood Cell Count 4.59 M/mm3 (4.30-5.90); White Blood Cell Count 12.26 K/mm3 (4.00-11.30)
[2022-03-24 09:29] LABS: Albumin, Blood 2.8 g/dL (3.4-5.0); Anion Gap 2 mmol/L (6-16); Blood Urea Nitrogen 41 mg/dL (8-24); Bun/Creatinine Ratio 24.6 (12.0-20.0); CO2, Blood 35 mmol/L (21-32); Chloride, Blood 108 mmol/L (98-108); Creatinine, Blood 1.67 mg/dL (0.60-1.20); Glomerular Filtration Rate 42 (60-); Glucose, Blood 171 mg/dL (70-99); Magnesium, Blood 2.2 mg/dL (1.6-2.4); Phosphorus, Blood 3.4 mg/dL (2.5-4.9); Potassium, Blood 4.5 mmol/L (3.5-5.5); Sodium, Blood 145 mmol/L (136-145)
--- NOTE | 2022-03-24 18:38 | NUR ---
SHIFT SUMMARY- PT IS ALERT, PLESANT AND COOPERATIVE. HE IS FORGETFUL. HE WAS UP TO THE CHAIR MOST OF THIS SHIFT. VISITED THIS AFTERNOON. HE REFUSED A SHOWER THIS SHIFT. ISOLATION WAS MAINTAINED THIS SHIFT. HE WAS RESTLESS AND REMAINED IN RESTRAINTS. HIS CALL LIGHT IS WITHIN REACH.
--- NOTE | 2022-03-25 04:55 | NUR ---
TRIM MECHANIC SUMMARY: A&Ox2-3 WITH CONFUSION R/T SURROUNDINGS AND SITUATION. BED ALARM IN PLACE WHILE IN RECLINER AND BED. STEPHANIE HAS BEEN OFF ALL NIGHT WITHOUT INCIDENT. GLUCOSE LAST NIGHT 347; ADMINISTERED 2u SHORT-ACTING AND 15u LONG-ACTING PER EMR. TAKING MEDS WHOLE IN APPLESAUCE. PEASANT AND COOPERATIVE [facility]. DOES NOT CALL APPROPRIATELY, BUT OFTEN PRESSES NURSE BUTTON ON REMOTE WHEN TRYING TO ACCESS TV LISTINGS. ABLE TO COMMUNICATE NEEDS MOSTLY, BUT DOES HAVE DIFFICULTY FINDING THE RIGHT WORDS SOMETIMES. SLEPT VERY WELL AND HAD NO ACUTE CONCERNS T/O NIGHT. WILL REPORT TO ONCOMIN GRN.
[2022-03-25 06:57] LABS: BASOPHILS ABSOLUTE AUTO 0.06 K/mm3 (0.00-0.23); BASOPHILS PERCENT AUTO 1 % (0-2); EOSINOPHILS ABSOLUTE AUTO 0.51 K/mm3 (0.00-0.68); EOSINOPHILS PERCENT AUTO 5 % (0-6); Hemoglobin 13.3 g/dL (13.5-17.5); IMMATURE GRAN ABSOLUTE AUTO 0.14 K/mm3 (0.00-0.10); IMMATURE GRAN PERCENT AUTO 1 % (0-1); LYMPHOCYTES PERCENT AUTO 10 % (21-46); MONOCYTES ABSOLUTE AUTO 1.05 K/mm3 (0.16-1.47); MONOCYTES PERCENT AUTO 10 % (4-13); Mean Corpuscular HGB 31.4 pg (26.0-34.0); Mean Corpuscular HGB Conc 32.4 g/dL (31.5-36.5); Mean Corpuscular Volume 97 fL (80-100); Mean Platelet Volume 12.2 fL (9.1-12.4); NEUTROPHILS ABSOLUTE AUTO 7.67 K/mm3 (1.96-9.15); NEUTROPHILS PERCENT AUTO 74 % (41-73); Platelet Count 249 K/mm3 (150-400); RDW Coefficient Variation 13.6 % (11.7-14.2); Red Blood Cell Count 4.24 M/mm3 (4.30-5.90); White Blood Cell Count 10.43 K/mm3 (4.00-11.30)
[2022-03-25 07:22] LABS: Albumin, Blood 2.7 g/dL (3.4-5.0); Anion Gap 5 mmol/L (6-16); Blood Urea Nitrogen 45 mg/dL (8-24); Bun/Creatinine Ratio 26.3 (12.0-20.0); CO2, Blood 31 mmol/L (21-32); Chloride, Blood 110 mmol/L (98-108); Creatinine, Blood 1.71 mg/dL (0.60-1.20); Glomerular Filtration Rate 41 (60-); Glucose, Blood 136 mg/dL (70-99); Magnesium, Blood 2.4 mg/dL (1.6-2.4); Phosphorus, Blood 3.5 mg/dL (2.5-4.9); Potassium, Blood 4.3 mmol/L (3.5-5.5); Sodium, Blood 146 mmol/L (136-145)
--- NOTE | 2022-03-26 04:25 | NUR ---
INSPECTOR REPAIRER SUMMARY ASHLEY SLEPT WELL FOR 5-6 HOURS BEFORE ATTEMPTING TO GET OOB TO CHAIR AND BATHROOM. HE IS STILL FAIRLY UNSTEADY ON HIS FEET, HOWEVER, HE HAS NO RECOLLECTION OF THIS. NO AGGRESSIVE BEHAVIORS, JUST PLEASANTLY CONFUSED. FOLLOWS 2-3 WORD COMMANDS WITH LITTLE DIFFICULTY. UP IN RECLINER SINCE AROUND 0100. WHEN HE WANTS TO GET UP, HE JUST TURNS OFF THE CHAIR ALARM. NO COMPLAINTS OF PAIN OR DISCOMFORT.
[2022-03-26 05:22] LABS: Hemoglobin 14.2 g/dL (13.5-17.5)
[2022-03-26 05:59] LABS: Albumin, Blood 2.9 g/dL (3.4-5.0); Anion Gap 5 mmol/L (6-16); Blood Urea Nitrogen 38 mg/dL (8-24); Bun/Creatinine Ratio 21.7 (12.0-20.0); CO2, Blood 31 mmol/L (21-32); Calcium, Blood 9.3 mg/dL (8.5-10.1); Chloride, Blood 109 mmol/L (98-108); Creatinine, Blood 1.75 mg/dL (0.60-1.20); Glomerular Filtration Rate 40 (60-); Glucose, Blood 207 mg/dL (70-99); Magnesium, Blood 2.4 mg/dL (1.6-2.4); Phosphorus, Blood 3.7 mg/dL (2.5-4.9); Potassium, Blood 4.3 mmol/L (3.5-5.5); Sodium, Blood 145 mmol/L (136-145)
--- NOTE | 2022-03-26 10:32 | NUR ---
DR ACHARYA AND DR TABARES HAVE ROUNDED ON PATIENT, PATIENT UNABLE TO SAFELY CARE FOR HIMSELF AT HOME, TO CONTACT TO DETERMINE LIVING OPTIONS, PATIENT IS RECOMMENDED TO SNF, PATIENT VERY AGRUITIVE THIS AM, IMPULSIVE, UNSTEADY GAIT, STAND BY FWW WITH A GAIT BELT, BED/CHAIR ALARMS ON
[2022-03-26] MEDS ORDERED: AMLO10 PO (16:13)
[2022-03-26] MEDS ORDERED: HYDR10 PO (16:14)
[2022-03-26] MEDS ORDERED: Nicoderm Cq1 EAC1 TOP (16:16)
--- NOTE | 2022-03-26 16:30 | NUR ---
PATIENT AND STATED UNDERSTANDING OR DISCHARGE INSTRUCTIONS
== END 2022-03-26 16:57 | disposition home health service (06) | DRG 371 ==
LOC: ER 04:35 → MEDS 04:36
PROVIDERS: Family Medicine; Hospitalist; Internal Medicine Nephrology; Student in an Organized Health Care Education/Training Program; ADMIT Internal Medicine
DX: A04.0 Enteropathogenic Escherichia coli infection (principal); G93.41 Metabolic encephalopathy; E87.0 Hyperosmolality and hypernatremia; N17.9 Acute kidney failure, unspecified; N25.81 Secondary hyperparathyroidism of renal origin; A04.72 Enterocolitis due to Clostridium difficile, not specified as recurrent; N18.30 Chronic kidney disease, stage 3 unspecified; D63.1 Anemia in chronic kidney disease; E11.22 Type 2 diabetes mellitus with diabetic chronic kidney disease; E11.65 Type 2 diabetes mellitus with hyperglycemia; E83.39 Other disorders of phosphorus metabolism; E88.09 Other disorders of plasma-protein metabolism, not elsewhere classified; I12.9 Hypertensive chronic kidney disease with stage 1 through stage 4 chronic kidney disease, or unspecified chronic kidney disease; I95.1 Orthostatic hypotension; E11.40 Type 2 diabetes mellitus with diabetic neuropathy, unspecified; G70.00 Myasthenia gravis without (acute) exacerbation; M19.90 Unspecified osteoarthritis, unspecified site; E87.5 Hyperkalemia; E66.9 Obesity, unspecified; E78.5 Hyperlipidemia, unspecified; G47.33 Obstructive sleep apnea (adult) (pediatric); H40.9 Unspecified glaucoma; Z90.89 Acquired absence of other organs; Z87.891 Personal history of nicotine dependence; Z98.890 Other specified postprocedural states; Z88.6 Allergy status to analgesic agent; Z88.8 Allergy status to other drugs, medicaments and biological substances; Z79.4 Long term (current) use of insulin; Z79.82 Long term (current) use of aspirin; Z79.899 Other long term (current) drug therapy; W18.39XA Other fall on same level, initial encounter
CPT/HCPCS: 36415; 36600; 70450; 70551; 71046; 71250; 72125; 76770; 80053; 80069; 81001; 82436; 82550; 82553; 82803; 82947; 83519; 83735; 84100; 84145; 84165; 84295; 84300; 84439; 84443; 84481; 84484; 85014; 85018; 85025; 85651; 86140; 87040; 87324; 87507; 92526; 92610; 93005; 93010; 94660; 94760; 94762; 95819; 96361; 96365; 96366; 96367; 96372; 96374; 96375; 96376; 97110; 97116; 97129; 97162; 97166; 97530; 97535; 99285-25; A9270; C1751; G0378; G0480; J0360; J0696; J1650; J1815; J2060; J2405; J2543; J2550; J3370; J7030; J7050; J7060; J7070; J7120

== ENCOUNTER → 2022-06-25 | Outpatient (CLI) | payer OTHER ==
[~2022-06-25] MED LIST changes: +AMLO10 PO; +BETIMOL5 ML BOTHEYES; +HYDR10 PO; +LATANOPROST2.5 M3 BOTHEYES; +Nicoderm Cq1 EAC1 TOP
== END ==
LOC: LAB 10:25 → LAB SHORT 10:25
DX: R35.0 Frequency of micturition (principal)
CPT/HCPCS: 87086

== ENCOUNTER 2022-07-20 13:13 | Emergency (ER) | payer OTHER ==
[~2022-07-20] VITALS: Ht 167.6 cm; Wt 90.7 kg
== END 2022-07-20 17:24 | disposition home or self-care (01) ==
LOC: ER 13:13
DX: M54.50 Low back pain, unspecified (principal); S80.11XA Contusion of right lower leg, initial encounter; N18.30 Chronic kidney disease, stage 3 unspecified; E11.22 Type 2 diabetes mellitus with diabetic chronic kidney disease; W18.09XA Striking against other object with subsequent fall, initial encounter; Z88.5 Allergy status to narcotic agent; Z88.8 Allergy status to other drugs, medicaments and biological substances; Z79.899 Other long term (current) drug therapy; Z79.4 Long term (current) use of insulin; Z79.82 Long term (current) use of aspirin
CPT/HCPCS: 72100; 73560-RT; 96374; 99283-25; A9270; J1885

== ENCOUNTER 2022-08-12 23:13 | Inpatient (IN) | payer OTHER ==
[~2022-08-12] VITALS: Ht 175.3 cm; Wt 90.9 kg
[2022-08-13] VITALS (21 sets, daily range): BP systolic 109–193; BP diastolic 44–98
[2022-08-13 00:10] LABS: PCO2 Arterial 37.2 mmHg (35-45); PO2 Arterial 176 mmHg (80-100); pH Blood Arterial 7.47 (7.35-7.45)
[2022-08-13 00:21] LABS: Source, Urine Foley catheter
[2022-08-13 00:34] LABS: Bilirubin, Urine Neg (Neg); Blood, Urine Neg (Neg); Glucose Qualitative, Urine 2+ (Neg); Ketones, Urine Neg (Neg); Leukocyte Esterase, Urine Neg (Neg); Nitrite, Urine Neg (Neg); Protein, Urine 2+ (Neg); Urobilinogen, Urine NORM (Normal)
[2022-08-13 00:45] LABS: Appearance, Urine Clear (Clear); Color, Urine Yellow (P-Yellow)
[2022-08-13 00:47] LABS: Bacteria Not Seen /hpf; Red Blood Cells, Urine 0-2 /hpf (0-2); Squamous Epithelial Cells Rare /hpf (Few); White Blood Cells, Urine 0-2 /hpf (0-5)
[2022-08-13 00:56] LABS: U Amphetamine Screen Not Detected; U Barbituate Screen Not Detected; U Benzodiazapine Screen Not Detected; U Buprenorphine Screen Not Detected; U Cannabinoids Screen Not Detected; U Cocaine Screen Not Detected; U Methadone Screen Not Detected; U Methamphetamine Screen Not Detected; U Opiates Screen Not Detected; U Oxycodone Screen Not Detected; U Phencyclidine Screen Not Detected; U Propoxyphene Screen Not Detected
[2022-08-13 01:12] LABS: BASOPHILS ABSOLUTE AUTO 0.05 K/mm3 (0.00-0.23); BASOPHILS PERCENT AUTO 1 % (0-2); EOSINOPHILS ABSOLUTE AUTO 0.25 K/mm3 (0.00-0.68); EOSINOPHILS PERCENT AUTO 3 % (0-6); Hematocrit 44.4 % (37.0-53.0); Hemoglobin 14.4 g/dL (13.5-17.5); IMMATURE GRAN ABSOLUTE AUTO 0.03 K/mm3 (0.00-0.10); IMMATURE GRAN PERCENT AUTO 0 % (0-1); LYMPHOCYTES ABSOLUTE AUTO 1.46 K/mm3 (0.84-5.20); LYMPHOCYTES PERCENT AUTO 17 % (21-46); MONOCYTES ABSOLUTE AUTO 0.69 K/mm3 (0.16-1.47); MONOCYTES PERCENT AUTO 8 % (4-13); Mean Corpuscular HGB 31.2 pg (26.0-34.0); Mean Corpuscular HGB Conc 32.4 g/dL (31.5-36.5); Mean Corpuscular Volume 96 fL (80-100); Mean Platelet Volume 11.3 fL (9.1-12.4); NEUTROPHILS ABSOLUTE AUTO 6.21 K/mm3 (1.96-9.15); NEUTROPHILS PERCENT AUTO 72 % (41-73); Platelet Count 203 K/mm3 (150-400); RDW Coefficient Variation 13.2 % (11.7-14.2); RDW Standard Deviation 46.8 fL (35.1-46.3); Red Blood Cell Count 4.62 M/mm3 (4.30-5.90); White Blood Cell Count 8.69 K/mm3 (4.00-11.30)
[2022-08-13 01:46] LABS: CPK Creatine Kinase 81 U/L (39-308); Ethanol (Alcohol), Blood, Med <3 mg/dL
[2022-08-13 02:12] LABS: Alanine Aminotransfer (ALT/SGP 17 U/L (12-78); Albumin, Blood 3.1 g/dL (3.4-5.0); Alk Phos 115 U/L (50-136); Anion Gap 7 mmol/L (6-16); Aspartate Aminotrans (AST/SGOT 21 U/L (12-37); Bilirubin, Total 0.6 mg/dL (0.1-1.0); Blood Urea Nitrogen 33 mg/dL (8-24); Bun/Creatinine Ratio 25.4 (12.0-20.0); CO2, Blood 25 mmol/L (21-32); Chloride, Blood 113 mmol/L (98-108); Globulin, Blood 3.1 g/dL (2.2-4.0); Glomerular Filtration Rate 57 (60-); Glucose, Blood 131 mg/dL (70-99); Potassium, Blood 4.3 mmol/L (3.5-5.5); Sodium, Blood 145 mmol/L (136-145); Total Protein, Blood 6.2 g/dL (6.4-8.2)
--- NOTE | 2022-08-13 05:57 | NUR ---
PATIENT TO ROOM AT APPROX 0310 FROM ER. PATIENT ON VENT UPON ARRIVAL, AND SEDATED ON PROPOFOL. PROPOFOL WAS TITRATED OFF AND PATIENT BECAME MORE ALERT, FOLLOWING ALL COMMANDS AND NOD YES/NO. RT SWITCHED PATIENT TO SPONT AND PATIENT TOLERATED WELL. CALLED DR. WEATHERS WHO CAME TO THE ROOM TO ASSESS PATIENT, ORDERS TO EXTUBATE. PATIENT EXTUBATED AT 0552 AND PLACED ON 2L VIA NC. 02 SATS 100%. PATIENT TAKING DEEP BREATHS AND ABLE TO COUGH. PATIENT STATES YEAR AND CITY. RESTRAINTS REMOVED. HR SB AT 55, BP STABLE. TEMP IBARRA IN PLACE AND TEMP COMING UP FROM 96 DEGREES TO 96.8 DEGREES F. GOOD URINE OUTPUT, CLEAR YELLOW. CALL LIGHT IN REACH
--- NOTE | 2022-08-13 13:24 | NUR ---
Spiritual Care Attempted. Pt. is awake in bed and welcomes my visit. After cordial introductions the Pt. declined Spiritual Care.
--- NOTE | 2022-08-13 14:48 | NUR ---
TRANSFER FROM ICU PATIENT ARRIVED FROM ICU TO PCU ROOM 08 AT 1315. 2 PERSON ASSIST TO TRANSFER FROM WC TO BED. WEAK AND SHAKY. ALERT AND TALKATIVE, ORIENTED TO SELF, PLEASANT. FORGETFUL AND CONFUSED ABOUT CURRENT SITUATION. TELE PLACED, PATIENT PICKING WIRES. TWO IV'S IN RIGHT ARM WITH PHIL WRAP. ATTENDS PLACED. BED ALARM ON. ICE WATER PROVIDED. BLE SKIN NOTED BE DRY, BROWN, LARGE SWOLLEN LUMP NEAR RIGHT KNEE. CHEM BG 274. NSR TELE 80S TO 90S.
--- NOTE | 2022-08-13 15:06 | NUR ---
SHIFT SUMMARY ASSUMED CARE OF PT AT 0715 AFTER RECIEVING BEDSIDE REPORT. PT IS A/O X2, EXTUBATED AT 0550, ON 2L NC, IBARRA IN PLACE DRAINING JANETTE URINE. TITRATED O2 TO OFF, PT MAINTAINS O2 SAT > 94%. IBARRA D/C'D, PT TOLERATED WELL. BP ELEVATED, HYDRALIZINE IV GIVEN WITH GOOD RESULT. STATUS CHANGED TO PCU, UPDATED VIA PHONE. SHE WILL BE BACK IN TOMORROW. IS WORKING WITH [employer] ON GETTING A NEW CPAP MACHINE FOR HOME. PT TRANSFERRED TO PCU 8 VIA W/C WITH ALL BELONGINGS AT 1350.
--- NOTE | 2022-08-13 18:09 | NUR ---
END OF SHIFT NOTE ABOUT 1700 PATIENT BECAME IRRITABLE AND MORE CONFUSED. VERBALLY CONTRARY SAYING NO TO ALL QUESTIONS OR SUGGESTIONS. CALLED OUT FOR SPOUSE. WANTED TO AMBULATE INDEPENDENTLY IN ROOM. VERY UNSTEADY AND HIGH FALL RISK. DIDN'T WANT TO HAVE ANY STAFF STAND BY. NOT EASILY REDIRECTABLE. ATTEMPTED TO LEAVE ROOM AND HEAVED ON DOOR. PHYSICALLY GRABBED THIS RN AND STORMY MAZA RN'S HANDS AND SQUEEZED HARD HE COULD STATING HE WAS TRYING TO HURT US. VERBALLY THREATENED TO HIT STAFF. STORMY MAZA RN CALLED DR ANSARI AND OBTAINED ORDER FOR IV HALDOL. THIS WAS ADMINISTERED WITH 4 STAFF IN ROOM HELPING HOLD PATIENT'S ARMS WITH SECURITY ASSISTING. BRIEFLY BECAME CALM AFTER HALDOL AND TOLERATED A FEW BITES OF DINNER. ASSISTED BACK TO BED. FREQUENT INC URINATIONS ALTHOUGH PATIENT ATTEMPTS TO GET UP TO URINATE. ATTENDS IN PLACE. PATIENT RESTING IN CHAIR AT BEDSIDE AT THIS TIME. REMOTE MONITOR IS ON. TELE DC'D. ATTEMPTED TO CALL PATIENT'S SPOUSE BUT SHE DID NOT ANSWER. 2 IV'S IN RIGHT ARM WRAPPED WITH PHIL BUT PATIENT REMOVED PHIL . SKIN GENERALLY THIN AND FRAGILE WITH SCATTERED BRUISES. LARGE SWOLLEN LUMP TO RIGHT KNEE. PER REPORT PATIENT HAS ALMOST DAILY FALLS AT HOME.
--- NOTE | 2022-08-13 20:41 | NUR ---
VITALS ASK PT IF I COULD TAKE VITALS, PT DECLINED. WAS ABLE TO GET SPO2 MONITOR ON BRIEFLY WHILE PT WAS SLEEPING AT SHIFT CHANGE. SATS >90 ON RA. WILL ATTEMPT AGAIN LATER.
[2022-08-14] VITALS (8 sets, daily range): BP systolic 156–184; BP diastolic 52–74
--- NOTE | 2022-08-14 05:44 | NUR ---
SHIFT SUMMARY PT A&O2-3. INITIALLY PT REFUSED EVENING MEDS/VITALS. NOT IRRITABLE AT ANY POINT. EVENTUALLY SETTLED INTO BED AND RESTED TILL AROUND 0100. AT THAT POINT THE PT ALLOWED VITALS AND WAS MORE COOPERATIVE. RECLINER WAS BROUGHT IN THE PT PREFERRED THAT OVER THE BED, CHAIR ALARM IN PLACE, AND ON REMOTE CAMERA'S. BP WAS ELEVATED GIVEN HYDRALAZINE ONCE WITH EFFECT. HR HAS BEEN A LITTLE XUAN, MID 50'S-LOW 60'S. PT HAS BEEN INCONTINENT OF URINE, BUT DID HAVE A BM IN THE BATHROOM, ATTENDS IN PLACE. CALL LIGHT WITHIN REACH.
[2022-08-14 06:29] LABS: BASOPHILS ABSOLUTE AUTO 0.05 K/mm3 (0.00-0.23); BASOPHILS PERCENT AUTO 0 % (0-2); EOSINOPHILS ABSOLUTE AUTO 0.02 K/mm3 (0.00-0.68); EOSINOPHILS PERCENT AUTO 0 % (0-6); Hematocrit 42.7 % (37.0-53.0); Hemoglobin 14.3 g/dL (13.5-17.5); IMMATURE GRAN ABSOLUTE AUTO 0.07 K/mm3 (0.00-0.10); IMMATURE GRAN PERCENT AUTO 1 % (0-1); LYMPHOCYTES ABSOLUTE AUTO 1.33 K/mm3 (0.84-5.20); LYMPHOCYTES PERCENT AUTO 10 % (21-46); MONOCYTES ABSOLUTE AUTO 1.06 K/mm3 (0.16-1.47); MONOCYTES PERCENT AUTO 8 % (4-13); Mean Corpuscular HGB 31.7 pg (26.0-34.0); Mean Corpuscular HGB Conc 33.5 g/dL (31.5-36.5); Mean Corpuscular Volume 95 fL (80-100); Mean Platelet Volume 11.2 fL (9.1-12.4); NEUTROPHILS ABSOLUTE AUTO 10.49 K/mm3 (1.96-9.15); NEUTROPHILS PERCENT AUTO 81 % (41-73); Platelet Count 239 K/mm3 (150-400); RDW Coefficient Variation 13.4 % (11.7-14.2); RDW Standard Deviation 46.8 fL (35.1-46.3); Red Blood Cell Count 4.51 M/mm3 (4.30-5.90); White Blood Cell Count 13.02 K/mm3 (4.00-11.30)
[2022-08-14 06:54] LABS: Albumin, Blood 3.2 g/dL (3.4-5.0); Albumin/Globulin Ratio 1.1 (0.8-1.8); Bilirubin, Total 0.8 mg/dL (0.1-1.0); Bun/Creatinine Ratio 28.8 (12.0-20.0); Calcium, Blood 9.1 mg/dL (8.5-10.1); Creatinine, Blood 1.25 mg/dL (0.60-1.20); Potassium, Blood 4.2 mmol/L (3.5-5.5); Total Protein, Blood 6.2 g/dL (6.4-8.2)
--- NOTE | 2022-08-14 07:30 | NUR ---
Received report from Noc RN. Patient awake and sitting in recliner. He is pleasant with care. he is alert and oriented to self, place, city. Her is able to communicate his needs. He is on RA and sats >90%. He has 20ga IV in RFA and RAC both flushed and SL'd. He is independent with eating and states he needs SBA whenever up. He use urinal appropriately. MAEW but slightly weak. Denies any current needs other than shower.
--- NOTE | 2022-08-14 11:30 | NUR ---
Patient lying in bed supine. He remains on Ra and sats >90%. He was up with SBA for shower and sitter helped with ADL's. He is now med no tele and will remove sitter as he has been appropriate. CBG 279 and 3 unit coverage. No changes jordan patient's neuro and is alert to self, place and city and makes cesar confusing statements but mostly clear. He uses call light after frequent direction. Calls for urinal.
--- NOTE | 2022-08-14 16:58 | NUR ---
SHIFT SUMMARY PT UP FROM PCU. PT ALERT AND ORIENTED, OCCASIONAL CONFUSION DURING SHIFT, PT CALLS APPROPRIATELY. PT REMAINS ON RA, BIPAP QHS. PT SBA TO CHAIR. PT PLACED ON PUREED DIET PER ST. PENDING CPAP DELIVERY MON/TU. WILL CONTINUE TO MONITOR. CALL LIGHT WITHIN REACH.
--- NOTE | 2022-08-14 23:07 | NUR ---
RT IN ROOM TO SETUP CPAP PER PATIENT REQUEST. WCTM.
[2022-08-15 03:13] VITALS: BP 183/71
--- NOTE | 2022-08-15 04:12 | NUR ---
SHIFT SUMMARY PATIENT HAD NO ACUTE CHANGES. AXOX 3 WITH HX DEMENTIA. ONE ASSIST TO BSC. RT IN TO SETUP BIPAP. PATIENT WORE MOST OF THE SHIFT. STATING 94% ON CONTINUOUS PULSE OXIMETRY. DENIES CHEST PAIN, SOB, AND N/V. VSS/AFEBRILE. CBG 249. CALL LIGHT IN REACH. BED IN LOWEST POSITION. WILL CONTINUE TO MONITOR UNTIL DAY SHIFT NURSE ASSUMES CARE.
[2022-08-15 06:39] VITALS: BP 133/78
[2022-08-15 07:36] VITALS: BP 143/54
--- NOTE | 2022-08-15 17:15 | NUR ---
SHIFT SUMMARY NO ACUTE CHANGES NOTED DURING SHIFT. PT ALERT AND ORIENTED, CALLS APPROPRIATELY. PT AMBULATED IN HALLS WITH PHYSICAL THERAPY. PT REMAINS ON RA, BIPAP QHS, PT TOLERATED PREVIOUS NIGHT. PT AWAITING DELIVERY OF CPAP FOR DISCHARGE. WILL CONTINUE TO MONITOR. CALL LIGHT WITHIN REACH
[2022-08-15 19:15] VITALS: BP 157/71
--- NOTE | 2022-08-15 21:57 | NUR ---
PATIENT TRYING TO PUNCH STAFF. INCREASED AGITATION WITH MULTIPLE OUT OF BED ATTEMPTS. NOT ABLE TO FOLLOW DIRECTIONS AT THIS TIME. ON CAMERA. CONFUSED.
--- NOTE | 2022-08-15 23:27 | NUR ---
HOSPITALIST DR DIXON ORDERED BILATERAL SOFT WRIST RESTRAINTS. PATIENT COMBATIVE WITH CONFUSION AND FALL RISK. WCTM.
--- NOTE | 2022-08-16 04:22 | NUR ---
SHIFT SUMMARY PATIENT AGITATED AND COMBATIVE TRYING TO PUNCH STAFF. HOSPITALIST DR DIXON ORDERED BILATERAL SOFT WRIST RESTRAINTS. AXO X2 AND NOT ABLE TO FOLLOW DIRECTIONS AT THIS TIME. PIVS REMAIN INTACT. CBG 118. REFUSED BIPAP AND RT OFFERED A SECOND TIME AND REFUSED. STATING 94 % ON ROOM AIR CONTINUOUS PULSE OXIMETRY. CALL LIGHT IN REACH. BED IN LOWEST POSITION AND ALARM ACTIVATED. WILL CONTINUE TO MONITOR UNTIL DAY SHIFT NURSE ASSUMES CARE.
[2022-08-16 06:13] VITALS: BP 186/80
[2022-08-16 07:41] VITALS: BP 155/72
[2022-08-16 16:00] VITALS: BP 123/70
[2022-08-16 19:57] VITALS: BP 171/72
--- NOTE | 2022-08-16 20:00 | NUR ---
SHIFT SUMMARY PT ALERT TO SEL. SAMUELSTIVE OF CARE IN MORNING. WRIST RESTRAINTS DC'D ABOUT 0930. AT NOON PT GOT OUT OF BED AND WAS NOT ABLE TO BE REDIRECTED. PT WALKED IN CASTRO FOR ABOUT 45 MIN AND COULD NOT BE TALKED BACK TO HIS ROOM. SECURITY CALLED. PT ASSITED BACK TO ROOM AND SAT AT EDGE OF BED. PT WOULD NOT GET INTO BED. IM ZYPREXA GIVEN. PT STILL ATTEMPTING TO GET OOB. STEPHANIE RESTRAINT PLACED AND ORDER GIVEN FROM DR VAN. PT MORE CALM IN EVENING BUT STILL ATTEMPT TO GET OUT OF BED AT TIMES. BED IN LOWEST POSITION AND CALL LIGHT IN REACH.
--- NOTE | 2022-08-17 04:02 | NUR ---
SHIFT MOSTLY UNREMARKABLE. PT WAS AGITATED, PULLING AT RESTRAINTS, ATTEMPTING IMPULSIVELY OOB FOR THE FIRST HALF OF THE SHIFT. SINCE THEN HAS BEEN RESTING IN BED. SATTING WELL WITH VERY OCCASIONAL DIPS ON ROOM AIR. REMAINS AOX1-2. CONFUSED. VERY IRRITABLE. WAS COOPERATIVE WITH 2100 MEDICATION ADMINISTRATION AND ASSESSMENT. DOES NOT USE CALL LIGHT. INCONTINENT. BED LOCKED IN LOWEST POSITION. CALL LIGHT LEFT WITHINR EACH.
[2022-08-17 04:26] VITALS: BP 115/57
[2022-08-17 04:38] LABS: BASOPHILS ABSOLUTE AUTO 0.05 K/mm3 (0.00-0.23); BASOPHILS PERCENT AUTO 1 % (0-2); EOSINOPHILS ABSOLUTE AUTO 0.41 K/mm3 (0.00-0.68); EOSINOPHILS PERCENT AUTO 6 % (0-6); Hematocrit 39.4 % (37.0-53.0); IMMATURE GRAN ABSOLUTE AUTO 0.04 K/mm3 (0.00-0.10); IMMATURE GRAN PERCENT AUTO 1 % (0-1); LYMPHOCYTES ABSOLUTE AUTO 1.41 K/mm3 (0.84-5.20); LYMPHOCYTES PERCENT AUTO 20 % (21-46); MONOCYTES ABSOLUTE AUTO 0.64 K/mm3 (0.16-1.47); MONOCYTES PERCENT AUTO 9 % (4-13); Mean Corpuscular HGB 31.7 pg (26.0-34.0); Mean Corpuscular Volume 96 fL (80-100); Mean Platelet Volume 11.1 fL (9.1-12.4); NEUTROPHILS ABSOLUTE AUTO 4.51 K/mm3 (1.96-9.15); NEUTROPHILS PERCENT AUTO 64 % (41-73); Platelet Count 222 K/mm3 (150-400); RDW Coefficient Variation 13.2 % (11.7-14.2); RDW Standard Deviation 46.9 fL (35.1-46.3); White Blood Cell Count 7.06 K/mm3 (4.00-11.30)
[2022-08-17 04:56] LABS: Albumin, Blood 2.5 g/dL (3.4-5.0); Anion Gap 2 mmol/L (6-16); Blood Urea Nitrogen 21 mg/dL (8-24); Bun/Creatinine Ratio 16.2 (12.0-20.0); CO2, Blood 29 mmol/L (21-32); Calcium, Blood 8.2 mg/dL (8.5-10.1); Chloride, Blood 114 mmol/L (98-108); Glomerular Filtration Rate 57 (60-); Glucose, Blood 82 mg/dL (70-99); Magnesium, Blood 1.9 mg/dL (1.6-2.4); Phosphorus, Blood 3.1 mg/dL (2.5-4.9); Potassium, Blood 4.4 mmol/L (3.5-5.5); Sodium, Blood 145 mmol/L (136-145)
[2022-08-17 07:20] VITALS: BP 116/56
--- NOTE | 2022-08-17 11:29 | NUR ---
Brief supportive visit this AM. Pt resting in bed and is being assisted with eating his breakfast by RETAIL SHIFT SUPERVISOR. Pt remains confused with no S/S of distress at this time. Currently in [facility]. Spoke with Primary RN Bernadine and discussed case. Pt's spouse just recently left. Spoke with Dr Kathleen and discussed case. Plan will be for Palliative Care discuss Advanced Care Planing and code status discussion.
[2022-08-17 16:47] VITALS: BP 113/60
--- NOTE | 2022-08-17 17:14 | NUR ---
NOTE PT RESTED SOME OF THE DAY. STEPHANIE RESTRAINT STOPPED. HE IS CURRENTLY UP INTHE CHAIR EATING. CHAIR ALARM ACTIVE. HE IS PLEASANT AND COOPERATIVE AT THIS TIME. VSS. DENIED PAIN OR DISCOMFORT. CONTINUE POC.
[2022-08-17 19:27] VITALS: BP 128/64
[2022-08-17] MEDS ORDERED: TRAZ50 PO (20:22)
--- NOTE | 2022-08-18 03:46 | NUR ---
SHIFT UNREMARKABLE. PT HAS BEEN AOX3, PLEASANT, COOPERATIVE WITH CARE THROUGHOUT SHIFT. TOOK 2100 MEDICATIONS WHOLE WITH APPLESAUCE WITHOUT DIFFICULTY. CONTINUOUS PULSE OX RUNNING THROUGHOUT SHIFT, SATTING >92% ON ROOM AIR OVER COURSE OF NIGHT. OCCASIONAL DIPS INTO XUAN OF ~50 BPM WHILE SLEEPING. PT HAS BEEN SLEEPING SINCE LATE LAST NIGHT AND DENIED ANY PAIN OR DISCOMFORT BEFORE SLEEP. BED LOCKED IN LOWEST POSITION. CALL LIGHT LEFT WITHIN REACH.
[2022-08-18 05:14] VITALS: BP 146/65
[2022-08-18 07:09] VITALS: BP 145/66
[2022-08-18] MEDS ORDERED: Seroquel Xr50 MG PO (16:19)
--- NOTE | 2022-08-18 17:02 | NUR ---
Patient doing well this shift, no acute changes to patient status. Plan to DC home today. Kamala arrived to fit patient for new mask. [facility]. Patient left medical unit at 1645.
== END 2022-08-18 16:48 | disposition home health service (06) | DRG 208 ==
LOC: ER 23:13 → ICUW 08-13 02:25 → PCU 08-13 14:03 → MEDS 08-14 12:17
PROVIDERS: Family Medicine; Internal Medicine; Student in an Organized Health Care Education/Training Program; ADMIT Internal Medicine
PROC: 5A1935Z Respiratory Ventilation, Less than 24 Consecutive Hours (ICD-10-PCS; 2022-08-12)
PROC: 0BH17EZ Insertion of Endotracheal Airway into Trachea, Via Natural or Artificial Opening (ICD-10-PCS; 2022-08-12)
PROC: 4A033R1 Measurement of Arterial Saturation, Peripheral, Percutaneous Approach (ICD-10-PCS; principal; 2022-08-13)
PROC: 5A09357 Assistance with Respiratory Ventilation, Less than 24 Consecutive Hours, Continuous Positive Airway Pressure (ICD-10-PCS; 2022-08-13)
DX: J96.00 Acute respiratory failure, unspecified whether with hypoxia or hypercapnia (principal); G93.41 Metabolic encephalopathy; F05 Delirium due to known physiological condition; E11.22 Type 2 diabetes mellitus with diabetic chronic kidney disease; M10.9 Gout, unspecified; E78.5 Hyperlipidemia, unspecified; G70.00 Myasthenia gravis without (acute) exacerbation; E11.42 Type 2 diabetes mellitus with diabetic polyneuropathy; E11.51 Type 2 diabetes mellitus with diabetic peripheral angiopathy without gangrene; I95.1 Orthostatic hypotension; E66.9 Obesity, unspecified; G47.33 Obstructive sleep apnea (adult) (pediatric); N18.30 Chronic kidney disease, stage 3 unspecified; E11.39 Type 2 diabetes mellitus with other diabetic ophthalmic complication; L82.1 Other seborrheic keratosis; I70.209 Unspecified atherosclerosis of native arteries of extremities, unspecified extremity; M51.36 Other intervertebral disc degeneration, lumbar region; G31.09 Other frontotemporal neurocognitive disorder; F02.80 Dementia in other diseases classified elsewhere, unspecified severity, without behavioral disturbance, psychotic disturbance, mood disturbance, and anxiety; I45.10 Unspecified right bundle-branch block; R29.6 Repeated falls; W19.XXXA Unspecified fall, initial encounter; N40.0 Benign prostatic hyperplasia without lower urinary tract symptoms; E11.21 Type 2 diabetes mellitus with diabetic nephropathy; Z88.5 Allergy status to narcotic agent; Z78.1 Physical restraint status; Z88.8 Allergy status to other drugs, medicaments and biological substances; Z79.82 Long term (current) use of aspirin; Z79.4 Long term (current) use of insulin; Z79.899 Other long term (current) drug therapy; Z98.890 Other specified postprocedural states; Z79.02 Long term (current) use of antithrombotics/antiplatelets; Z68.26 Body mass index [BMI] 26.0-26.9, adult; Z99.89 Dependence on other enabling machines and devices
CPT/HCPCS: 31500; 36415; 36600; 51702; 70450; 71045; 80053; 80069; 81001; 82550; 82803; 82947; 83605; 83735; 84443; 85025; 92526; 92610; 93005; 93010; 94002; 94660; 94762; 96374-59; 97110; 97116; 97161; 97166; 97530; 97535; 99291-25; A9270; C9113; G0480; J0360; J1630; J1650; J1815; J2310; J2704; J2930; J7030